=== PATIENT | female | born 1930 | race Caucasian/White ===

== ENCOUNTER → 2016-08-19 | Outpatient (CLI) | payer OTHER ==
[~2016-08-19] MED LIST: BIMA0.01 OPB; CEPH500C PO; CMD5 PO; CTP1 PO; FRS/40 PO; LISI-461 PO; METO100T14 PO; POTA10CA28 PO; SIMV20TA2 PO; SULF800T23 PO; WARF5TAB7 PO
[2016-08-19 12:40] LABS: ESTIMATED AVERAGE GLUCOSE 134 mg/dl; HA1C FLAG Normal (Normal)
[2016-08-19 13:09] LABS: ALT/SGPT 23 U/L (12-78); AST/SGOT 22 U/L (15-37); BLOOD UREA NITROGEN 19 mg/dl (7-18); BUN/CREATININE RATIO 23.4 (10-20); CARBON DIOXIDE 30 mmol/L (21-32); CHLORIDE 106 mmol/L (98-107); GLUCOSE 97 mg/dl (70-99); POTASSIUM 3.7 mmol/L (3.5-5.1); SODIUM 142 mmol/L (136-145)
[2016-08-19 13:15] LABS: CALCIUM 9.6 mg/dl (8.5-10.1)
[2016-08-19 13:18] LABS: ALB/GLOB RATIO 0.8 (0.9-2); ALKALINE PHOSPHATASE 118 U/L (45-117)
== END | disposition home or self-care (01) ==
LOC: C.LABBFT 08:54
PROVIDERS: ATTEND Internal Medicine
DX: Z00.00 Encounter for general adult medical examination without abnormal findings (principal); I10 Essential (primary) hypertension; E78.00 Pure hypercholesterolemia, unspecified; R73.01 Impaired fasting glucose; I48.1 Persistent atrial fibrillation; R60.9 Edema, unspecified

== ENCOUNTER → 2017-03-16 | Outpatient (CLI) | payer OTHER ==
[~2017-03-16] MED LIST changes: -CEPH500C PO; -SULF800T23 PO
--- NOTE | 2017-03-16 15:20 | MAMMOGRAPHY REPORT ---
BILATERAL DIGITAL SCREENING MAMMOGRAM TOMOSYNTHESIS WITH CAD: 03/16/2017 CLINICAL HISTORY: Routine screening. TECHNIQUE: Breast tomosynthesis in addition to standard 2D mammography was performed. Current study was also evaluated with a Computer Aided Detection (CAD) system. COMPARISON: Comparison is made to exams dated: 03/15/2016 mammogram, 03/14/2015 mammogram, 03/05/2014 mammogram, 01/29/2013 mammogram, 01/28/2012 mammogram, and 01/26/2011 mammogram - [facility]. BREAST COMPOSITION: There are scattered areas of fibroglandular density in both breasts. FINDINGS: No suspicious masses, calcifications, or areas of architectural distortion are noted in ei ther breast. There has been no significant interval change compared to prior exams. Scattered bilater al benign-appearing calcifications are not significantly changed. A biopsy marker clip is again note d within the left upper outer quadrant. IMPRESSION: ACR BI-RADS CATEGORY 2: BENIGN There is no mammographic evidence of malignancy. A 1 year screening mammogram is recommended. The pa tient will receive written notification of the results. Approximately 10% of breast cancers are not detected with mammography. A negative mammographic report should not delay biopsy if a clinically suggestive mass is present. Lauren Robledo M.D. ah/:03/16/2017 12:36:25 Aerodynamics Professor: Henna STORM(Lilly)(M), [facility] letter sent: Normal 1/2 BI-RADS Code: ACR BI-RADS Category 2: Benign
== END | disposition home or self-care (01) ==
LOC: C.MAMM 09:38
PROVIDERS: ATTEND Internal Medicine
DX: Z12.31 Encounter for screening mammogram for malignant neoplasm of breast (principal)

== ENCOUNTER 2017-08-21 13:37 | Inpatient (IN) | payer OTHER ==
[~2017-08-21] VITALS: Ht 160 cm; Wt 104.0 kg
--- NOTE | 2017-08-21 14:10 | EMERGENCY ROOM VISIT NOTE ---
History Report prepared by Carito: Yesika Spencer Under the Supervision of: Dr. Santiago Mccurdy M.D. First contact with patient: 13:48 Chief Complaint: FALL Stated Complaint: FALL History of Present Illness The patient is an 87 year old white female with a past medical history of HTN, HLD, on coumadin for Afib who presents to the ED with a cc of a fall beginning at 1330 today. Positive left hip pain, mid back pain and numbness. Negative abdominal pain, neck pain, chest pain, LOC. She reports she was getting in the passenger side of a car when she fell on her left side onto the asphalt. She states she could not walk after she fell. Source of History: patient Onset: 1330 today Position: other (Left Hip) Quality: other (fall) Timing: other (sudden) Associated Symptoms: + back pain (mid), + numbness (left hip), No LOC, No neck pain, No chest pain, No abdominal pain Review of Systems See HPI for pertinent positives and negatives. A total of ten systems were reviewed and were otherwise negative. Past Medical & Surgical Medical Problems: (1) History of - hysterectomy (2) HTN (hypertension) (3) Hyperlipidemia (4) left hip FX and accelerated HTN (5) Replacement of aortic valve Family History FH: cancer FH: heart disease FH: kidney disease FHx: diabetes mellitus High blood pressure Social History Smoking Status: Never Smoker Smokeless Tobacco Use: No Alcohol Use: none Drug Use: none Marital Status: Housing Status: lives alone Occupation Status: retired Current/Historical Medications Scheduled Bimatoprost (Lumigan), 1 DROPS OPB HS Lisinopril (Zestril), 10 MG PO DAILY Metoprolol Tartrate (Lopressor) (Lopressor), 150 MG PO BID Simvastatin (Zocor), 20 MG PO QPM Warfarin Sod (Coumadin *), 5 MG PO 5XWK Warfarin Sod (Jantoven), 2.5 MG PO 2XWK Scheduled PRN Furosemide (Lasix), 40 MG PO DAILY PRN for edema Potassium Chloride (Micro-K Ext Rel), 10 MEQ PO DAILY PRN for when taking lasix Allergies Coded Allergies: No Known Allergies (Unverified , 08/21/17) Physical Exam Vital Signs Date Time Temp Pulse Resp B/P (MAP) Pulse Ox O2 Delivery O2 Flow Rate FiO2 08/21/17 17:25 79 20 160/97 98 08/21/17 15:24 90 17 186/106 95 Room Air 08/21/17 14:04 190/104 08/21/17 13:45 88 08/21/17 13:43 36.6 91 26 182/129 94 Room Air Physical Exam GENERAL: Awake, alert, well-appearing, NAD. Wearing glasses. HENT: Normocephalic, atraumatic. No head pain, no facial pain. No midline C spine TTP. EYES: Normal conjunctiva. Sclera non-icteric. NECK: Supple. No nuchal rigidity. FROM. RESPIRATORY: CTAB, no rhonchi, wheezing, crackles CARDIAC: RRR, no MRG ABDOMEN: Soft, NTND, BS+ BACK: No back pain. MSK: No RLE, no BUE. Mild Left hip pain. Does not appear short. NVI distally in the LLE. Overlying ecchymosis over the left hip. Mild pain with internal and external rotation. NEURO: GCS 15, CN 2-12 intact, moves all 4s on command SKIN: No rash or jaundice noted. Medical Decision & Procedures ER Provider Diagnostic Interpretation: Radiology results as stated below per my review and radiologist interpretation: L CHEST 1 VW FRONT-NOT PORTABLE CLINICAL HISTORY: LT HIP FX trauma COMPARISON STUDY: 12/09/2012 FINDINGS: Mild stable cardiomegaly. Prior median sternotomy. Diaphragms are smooth. Focal atelectasis left base laterally. Lungs otherwise are clear. IMPRESSION: Mild stable cardia megaly. Focal atelectasis left base laterally. The above report was generated using voice recognition software. It may contain grammatical, syntax or spelling errors. Electronically signed by: Stephen Woods M.D. 08/21/2017 3:20 PM L PELVIS/UNILATERAL HIP 2-3VIEWS CLINICAL HISTORY: s/p fall L hip, ground level on coumadin trauma. Pain. COMPARISON: None. DISCUSSION: Intertrochanteric fracture with potential involvement of the base of the left femoral neck. Slice appear migration left femoral shaft. Avulsion lesser trochanter. No evidence for acetabular protrusion. There is no evidence for soft tissue swelling. IMPRESSION: Intertrochanteric fracture left hip. The above report was generated using voice recognition software. It may contain grammatical, syntax or spelling errors. Electronically signed by: Stephen Woods M.D. 08/21/2017 3:17 PM Laboratory Results 08/21/17 14:20 Red Blood Count 4.44, Mean Corpuscular Volume 90.8, Mean Corpuscular Hemoglobin 28.8, Mean Corpuscular Hemoglobin Concent 31.8, Mean Platelet Volume 9.2, Neutrophils (%) (Auto) 84.0, Lymphocytes (%) (Auto) 6.2, Monocytes (%) (Auto) 6.7, Eosinophils (%) (Auto) 2.5, Basophils (%) (Auto) 0.3, Neutrophils # (Auto) 9.95, Lymphocytes # (Auto) 0.73, Monocytes # (Auto) 0.79, Eosinophils # (Auto) 0.29, Basophils # (Auto) 0.03 08/21/17 14:20 Test 08/21/17 14:20 08/21/17 16:12 White Blood Count 11.83 K/uL (4.8-10.8) Red Blood Count 4.44 M/uL (4.2-5.4) Hemoglobin 12.8 g/dL (12.0-16.0) Hematocrit 40.3 % (37-47) Mean Corpuscular Volume 90.8 fL (80-100) Mean Corpuscular Hemoglobin 28.8 pg (25-34) Mean Corpuscular Hemoglobin Concent 31.8 g/dl (32-36) Platelet Count 219 K/uL (130-400) Mean Platelet Volume 9.2 fL (7.4-10.4) Neutrophils (%) (Auto) 84.0 % Lymphocytes (%) (Auto) 6.2 % Monocytes (%) (Auto) 6.7 % Eosinophils (%) (Auto) 2.5 % Basophils (%) (Auto) 0.3 % Neutrophils # (Auto) 9.95 K/uL (1.4-6.5) Lymphocytes # (Auto) 0.73 K/uL (1.2-3.4) Monocytes # (Auto) 0.79 K/uL (0.11-0.59) Eosinophils # (Auto) 0.29 K/uL (0-0.5) Basophils # (Auto) 0.03 K/uL (0-0.2) RDW Standard Deviation 47.8 fL (36.4-46.3) RDW Coefficient of Variation 14.5 % (11.5-14.5) Immature Granulocyte % (Auto) 0.3 % Immature Granulocyte # (Auto) 0.04 K/uL (0.00-0.02) Prothrombin Time 42.2 SECONDS (9.0-12.0) Prothromb Time International Ratio 4.1 (0.9-1.1) Activated Partial Thromboplast Time 39.7 SECONDS (21.0-31.0) Partial Thromboplastin Ratio 1.5 Anion Gap 4.0 mmol/L (3-11) Est Creatinine Clear Calc Drug Dose 44.2 ml/min Estimated GFR () 55.9 Estimated GFR (Non- 48.3 BUN/Creatinine Ratio 11.6 (10-20) Calcium Level 9.1 mg/dl (8.5-10.1) Creatine Kinase MB 0.9 ng/ml (0.5-3.6) Troponin I < 0.015 ng/ml (0-0.045) Creatine Kinase MB Ratio (0-3.0) Laboratory results reviewed by me Medications Administered Medications (Trade) Dose Ordered Sig/Trista Route Start Time Stop Time Status Last Admin Dose Admin Acetaminophen (Tylenol Tab) 650 mg NOW STAT PO 08/21/17 14:11 08/21/17 14:16 DC 08/21/17 14:22 650 MG Tramadol HCl (Ultram Tab) 50 mg NOW STAT PO 08/21/17 14:11 08/21/17 14:16 DC 08/21/17 14:22 50 MG Phytonadione 5 mg/ Sodium Chloride 50.5 ml @ 101 mls/hr ONE ONCE IV 08/21/17 16:00 08/21/17 16:29 DC 08/21/17 16:56 101 MLS/HR ED Course 1402: The patient was evaluated in room C10. A complete history and physical exam was performed. 1525: The patient will be further evaluated by Dr. Herring [facility] Hospitalist. 1543: I discussed the patients case with Dr. Mario Olivo, Orthopedics. He would like her Coumadin reversed for likely operative treatment tomorrow. 1552: I discussed the patient's case with Dr. Mattson, [facility] Hospitalist. He agrees with Dr. Olivo's recommendation. Medical Decision The patient is an 87 year old white female with a past medical history of HTN, HLD, on coumadin for Afib who presents to the ED with a cc of a fall beginning at 1330 today. Nursing notes reviewed. Ancillary studies and prior records reviewed. Differential diagnosis: Etiologies such as fracture, dislocation, neurovascular compromise, compartment syndrome, soft tissue injury, as well as others were entertained. Patient was seen and evaluated the bedside. Patient reportedly had a mechanical fall she was trying to get into the passenger side of the vehicle approximately 30 hours prior to arrival. Patient did complain of some left- sided hip pain. Patient does take Coumadin. Patient denies hitting her head or neck. Patient denies any headache, numbness, tingling, or weakness. On exam the patient does have some mild left-sided hip pain. Patient is neurovascularly intact and and it is a closed injury. Patient does take Coumadin for A. fib. Patient did blood work completed along with plain films of the pelvis, left hip , and chest. Patient's blood work did show an elevated INR at 4.1. The patient 's plain films showed concern for a left intertrochanteric fracture. The on-call orthopedic surgeon was paged. He would like her INR reversed so that there can be operative fixation tomorrow. No other concerns at this time. I did reassess the patient his pain was well controlled. The patient is no one did not want anything else for pain. Patient was informed of the findings and the need to stay in the hospital. Patient did state that the last time she took for Coumadin was last night. Patient was told this would be held and she may receive medication to reverse it. I did discuss the patient's case with the on-call hospitalist who agreed to further evaluate and treat patient. Medication Reconcilliation Current Medication List: was personally reviewed by me Blood Pressure Screening Patient's blood pressure: Elevated blood pressure Blood pressure disposition: Referred to PCP Consults Additional Consults: Time Called: 1538 Consulted Physician: Dr. Mario Olivo, Orthopedics Returned Call: [phone] Additional Comments: I discussed the patients case with Dr. Mario Levine, Orthopedics. He would like her Coumadin reversed for likely operative treatment tomorrow. Time Called: 1543 Consulted Physician: Dr. Mattson, [facility] Hospitalist Returned Call: [phone] Additional Comments: The patient will be further evaluated by Dr. Mattson, [facility] Hospitalist. Impression Primary Impression: Intertrochanteric fracture of left hip Additional Impressions: Fall Supratherapeutic INR Scribe Attestation The scribe's documentation has been prepared under my direction and personally reviewed by me in its entirety. I confirm that the note above accurately reflects all work, treatment, procedures, and medical decision making performed by me. Departure Information Dispostion Being Evaluated By Hospitalist (Dr. Herring [facility] Hospitalist ) Referrals Deb Rizzo M.D. (PCP) Patient Instructions My [facility] Problem Qualifiers Primary Impression: Intertrochanteric fracture of left hip Encounter type: initial encounter Fracture type: closed Fracture alignment : displaced Qualified Codes: S72.142A - Displaced intertrochanteric fracture of left femur, initial encounter for closed fracture Additional Impressions: Fall Encounter type: initial encounter Qualified Codes: W19.XXXA - Unspecified fall, initial encounter
[2017-08-21] MEDS ORDERED: TRAMADOL HCL 50 MG TAB PO STA (14:11)
[2017-08-21] MEDS ORDERED: ACETAMINOPHEN 325 MG TAB PO STA (14:11)
[2017-08-21 14:39] LABS: BASO % 0.3 %; BASO ABS # 0.03 K/uL (0-0.2); EOS % 2.5 %; EOS ABS # 0.29 K/uL (0-0.5); HEMATOCRIT 40.3 % (37-47); HEMOGLOBIN 12.8 g/dL (12.0-16.0); IG# 0.04 K/uL (0.00-0.02); LYMPH % 6.2 %; LYMPH ABS # 0.73 K/uL (1.2-3.4); MEAN CELL VOLUME 90.8 fL (80-100); MEAN CORPUSCULAR HEMOGLOBIN 28.8 pg (25-34); MEAN CORPUSCULAR HGB CONC 31.8 g/dl (32-36); MEAN PLATELET VOLUME 9.2 fL (7.4-10.4); MONO % 6.7 %; MONO ABS # 0.79 K/uL (0.11-0.59); NEUT ABS # 9.95 K/uL (1.4-6.5); PLATELET COUNT 219 K/uL (130-400); RED CELL DISTRIBUTION WIDTH CV 14.5 % (11.5-14.5); RED CELL DISTRIBUTION WIDTH SD 47.8 fL (36.4-46.3); WHITE BLOOD COUNT 11.83 K/uL (4.8-10.8)
[2017-08-21 14:51] LABS: PTT PATIENT 39.7 SECONDS (21.0-31.0)
[2017-08-21 14:57] LABS: CALCIUM 9.1 mg/dl (8.5-10.1); CREATININE 1.04 mg/dl (0.60-1.20); POTASSIUM 3.7 mmol/L (3.5-5.1)
[2017-08-21 15:12] LABS: INR 4.1 (0.9-1.1)
--- NOTE | 2017-08-21 15:18 | DIAGNOSTIC IMAGING REPORT ---
L PELVIS/UNILATERAL HIP 2-3VIEWS CLINICAL HISTORY: s/p fall L hip, ground level on coumadin trauma. Pain. COMPARISON: None. DISCUSSION: Intertrochanteric fracture with potential involvement of the base of the left femoral neck. Slice appear migration left femoral shaft. Avulsion lesser trochanter. No evidence for acetabular protrusion. There is no evidence for soft tissue swelling. IMPRESSION: Intertrochanteric fracture left hip. The above report was generated using voice recognition software. It may contain grammatical, syntax or spelling errors. Electronically signed by: Stephen Woods M.D. 08/21/2017 3:17 PM Dictated Date/Time: 08/21/2017 3:16 PM
--- NOTE | 2017-08-21 15:22 | DIAGNOSTIC IMAGING REPORT ---
L CHEST 1 VW FRONT-NOT PORTABLE CLINICAL HISTORY: LT HIP FX trauma COMPARISON STUDY: 12/09/2012 FINDINGS: Mild stable cardiomegaly. Prior median sternotomy. Diaphragms are smooth. Focal atelectasis left base laterally. Lungs otherwise are clear. IMPRESSION: Mild stable cardia megaly. Focal atelectasis left base laterally. The above report was generated using voice recognition software. It may contain grammatical, syntax or spelling errors. Electronically signed by: Stephen Woods M.D. 08/21/2017 3:20 PM Dictated Date/Time: 08/21/2017 3:20 PM
[2017-08-21] MEDS ORDERED: PHYTONADIONE INJ 5 MG in SODIUM CHLORIDE 0.9% 50ML 50 ML IV ONE (16:00)
[2017-08-21] MEDS ORDERED: ONDANSETRON INJ 2 MG/ML 2 ML VIAL IV PRN (16:15)
[2017-08-21] MEDS ORDERED: MAGNESIUM HYDROXIDE SUSP 30 ML UDC PO PRN (16:15)
[2017-08-21] MEDS ORDERED: NITROGLYCERIN 0.4 MG SL PER TAB CHARGE SL PRN (16:15)
[2017-08-21] MEDS ORDERED: POLYETHYLENE (MIRALAX) 17 GM PACK PO PRN (16:15)
[2017-08-21] MEDS ORDERED: ZOLPIDEM TARTRATE 5 MG TAB PO PRN (16:15)
[2017-08-21] MEDS ORDERED: ALUMINUM/MAGNESIUM/SIMETH (MAALOX MAX) 30 ML UDC PO PRN (16:15)
[2017-08-21] MEDS ORDERED: HydrALAZINE HCL 20 MG/ML VIAL IV. STA (16:32)
[2017-08-21 16:50] LABS: CKMB 0.9 ng/ml (0.5-3.6)
--- NOTE | 2017-08-21 17:01 | History and Physical ---
History & Physical Date of Service Aug 21, 2017. History & Physical left hip FX and accelerated HTN, 144204
[2017-08-21 17:30] VITALS: BMI 41.0
--- NOTE | 2017-08-21 17:32 | HISTORY & PHYSICAL EXAMINATION ---
DATE OF ADMISSION: 08/21/2017 This is a level 3 inpatient admission, 35 minutes. CHIEF COMPLAINT: Fall and hip fracture. HISTORY OF PRESENT ILLNESS: The patient is an 87-year-old white female with a significant past medical history of CAD, s/p bioprosthetic aortic valve replacement in 2009 and has atrial fibrillation on Coumadin, coming into the hospital Emergency Department because of the above chief complaint. The patient reported she fell on 13:30 today associated with hip pain. Mild back pain and numbness. There was not any dizziness or chest pain, palpitations before the fall, she was out of car and wanted to hold the opening of car doors and then fell. She was getting the passenger side of the car when she fell on the left side on to asphalt. She was not able to walk since the fall. In the Emergency Room, the patient was found to have an intertrochanteric fractures in the left hip. When I interviewed with her, she was awake, alert and orientated, pleasant, conversational, follows all commands. Confirmed me the above information, Denied fever or chills, denied cough, sputum. Denies shortness of breath, denied chest pain, palpitation, there was positive 2+, lower extremity swelling. Denied facial droop, slurry speeches or local weakness. Denied dysuria, urgency, or frequencies, denied fever and chills, denies skin rashes. PAST MEDICAL HISTORY: Like I mentioned in the above which include CAD, bioprosthetic aortic valve replacement in 2009, atrial fibrillation on Coumadin, hypertension, dyslipidemia, anxiety, history of CVA. PAST SURGICAL HISTORY: Include bioprosthetic aortic valve replacement, appendectomy, tubal ligation, and hysterectomy. FAMILY HISTORY: Include hypertension, heart disease. SOCIAL HISTORY: Never smoked. Denied alcohol abuse disorder, denied illicit drug abuse. The patient lives alone. ALLERGIES: No known drug allergies. MEDICATIONS: Currently taking at home which include Lumigan eyedrops 0.01% one drop OPB, Lasix 40 mg p.o. p.r.n. for edema, lisinopril 10 mg p.o. daily, metoprolol 150 mg p.o. b.i.d., potassium 10 mEq p.o. daily p.r.n., Zocor 20 mg p.o. q.p.m., warfarin 5 mg 5 times per week and 2.5 mg 2 times per week. PHYSICAL EXAMINATION: VITAL SIGNS: Temperature is 36.6, pulse 90, respiratory rate 26, blood pressure 182/129 to begin with and currently is 186/106. Pulse ox was 96% in room air. GENERAL: The patient is a white female, much younger than her age. She is awake, alert, well appearing, no acute distress. HEAD: Normocephalic. EYES: Pupils equal, round, responds to light. EARS: Ear was normal. NOSE: Normal. NECK: Supple. No midline cervical spine tender to palpation. LUNGS: Clear to auscultation. No wheezing, rhonchi or crackles. HEART: Irregularly irregular. No murmur, gallop or rub. ABDOMEN: Soft, nontender. Bowel sound was positive. EXTREMITIES: Lower back has no pain. No right lower extremity abnormalities. Left lower extremity is shorter in external rotation. NEUROLOGIC: Cranial nerves II-XII was intact. There were no focal deficits. SKIN: Has no rashes, no jaundice. Chest x-ray was done, mild stable cardiomegaly. There was no congestion, no pleural effusion or pulmonary edema. Left pelvic x-ray studies shows intertrochanteric fracture of the left hip. LABORATORY STUDIES: WBC 11, hemoglobin 12, platelets 219. Sodium 139, potassium 3.7, BUN 12, creatinine 1.04. Blood glucose 117. In the ER, the patient got Tylenol and Tramadol. EKG not done yet in the ER. ASSESSMENT AND PLAN: An 87-year-old white female with the conditions below; 1. Mechanical fall resulting in intertrochanteric left hip fracture 2. History of atrial fibrillation, on Coumadin. 3. Hypertherapeutic Coumadin. INR at 4.1. 4. History of bioprosthetic aortic valve replacement. 5. History of coronary artery disease. 6. Hypertension, which is accelerated hypertension currently. 7. Dyslipidemia. PLAN: Because the patient has a history of aortic valve bioprosthetic replacement, currently has accelerated hypertension, history of coronary artery disease, and AFib, I will admit her to the tele, will consult Dr. Levine for the left hip fracture, discussed with Dr. eLvine and will repeat INR at 8:00 p.m. tonight. The patient got 5 mg IV vitamin K in the Emergency Room. If the INR is still high, we will give additional 5 mg vitamin K per Dr. Levine. I had a consented blood transfusion or FFP transfusion; if the patient's INR level more than 2 tomorrow morning, the patient should get 2 units of FFP transfusion. The patient has accelerated hypertension, I will order hydralazine 1 dose now and as needed. We will check cardiac enzyme troponin x1 set. Check EKG and tomorrow morning labs, CBC, BMP, PT/INR were ordered. For hypertension, dyslipidemia, will continue home medication. DVT prophylaxis currently is not indicated because the patient is planning to do surgeries and current INR is more than 4.1. The patient is do not resuscitation. The patient is awake, alert, and orientated and talked to her about the medical conditions and care plan. She understands and agreed and discussed with her about the moderate to high risk of perioperative cardiopulmonary complications, the risk and benefit, she fully understand and willing to take on the risk by herself. Two sisters at the bedside and they all understand and agree as well. BRYAN
[2017-08-21 17:51] VITALS: BP 147/100; PULSE 96; TEMP 37; O2SAT 97
[2017-08-21] MEDS: SODIUM CHLORIDE 0.9% 1000ML 1,000 ML IV SCH (18:08)
[2017-08-21 18:48] VITALS: BP 152/98
[2017-08-21] MEDS ORDERED: PHYTONADIONE INJ 5 MG in SODIUM CHLORIDE 0.9% 50ML 50 ML IV PRN (20:00)
[2017-08-21 20:17] VITALS: BP 159/106; PULSE 91; TEMP 36.6; O2SAT 96
[2017-08-21] MEDS: BIMATOPROST 0.01% OP SOLN 2.5 ML BTL OPB SCH (20:22)
[2017-08-21] MEDS: SIMVASTATIN 20 MG TAB PO SCH (20:22)
[2017-08-21] MEDS: DOCUSATE SODIUM/SENNA 50/8.6MG TAB PO SCH ×3 (20:23→21:01)
[2017-08-21] MEDS: METOPROLOL TARTRATE 100 MG TAB PO SCH (20:23)
[2017-08-21 20:33] LABS: INR 2.5 (0.9-1.1)
--- NOTE | 2017-08-21 20:37 | ORTHOPEDIC CONSULTATION ---
DATE OF CONSULTATION: 08/21/2017 Melany is seen in consultation for injury to her left hip. She fell earlier today. She had pain and could not walk. She was brought to the Emergency Room where she was found to have a left intertrochanteric hip fracture. She has a past medical history significant for coronary artery disease, aortic valve replacement, atrial fibrillation, hypertension, CVA, anxiety, elevated cholesterol. Her orthopedic doctor is Dr. Webb. I spoke with Dr. Mattson about her care. Reversal of her Coumadin with vitamin K has been started. This will be rechecked again at 8 o'clock tonight, and if elevated, another dose of vitamin K will be given, and a PT/INR will be checked in the morning. She has been made n.p.o. and added to the OR schedule. She has pain in her right hip with any movement. The leg is shortened and externally rotated. The left lower extremity is otherwise nontender. I do not palpate a posterior tibial pulse, but she has a 1+ dorsalis pedis pulse with normal sensation in her ankle and foot. She can flex and extend her ankle and toes with normal strength. She denies other injury. She has no history of bleeding, blood clots, or infections. Her elevated INR as well as SCDs will serve for DVT prophylaxis. Preop antibiotics are ordered. Her x-rays show a left hip comminuted intertrochanteric fracture. The proposed plan would be a trochanteric femoral nail. I will communicate with Dr. Webb.
[2017-08-21 21:02] VITALS: BP 166/96; PULSE 86; TEMP 36.7; O2SAT 96
[2017-08-21 21:32] VITALS: BP 165/89; PULSE 90; TEMP 36.6; O2SAT 96
[2017-08-21] MEDS: HydrALAZINE HCL 20 MG/ML VIAL IV. PRN (21:43)
[2017-08-21] MEDS: ACETAMINOPHEN 325 MG TAB PO PRN (22:00)
[2017-08-21 23:30] VITALS: BP 116/62; PULSE 98; TEMP 36.6; O2SAT 97
[2017-08-22] VITALS (7 sets, daily range): BP systolic 98–185; BP diastolic 65–115; PULSE 93–117; TEMP 36.6–37.1; O2SAT 93–97; Ht 160 cm; Wt 104.0 kg
[2017-08-22] MEDS: HYDROCODONE/ACETAMIN 5/325MG TAB PO PRN ×3 (01:28→22:34)
[2017-08-22 05:50] LABS: BASO % 0.1 %; BASO ABS # 0.01 K/uL (0-0.2); HEMATOCRIT 31.4 % (37-47); IG# 0.04 K/uL (0.00-0.02); LYMPH ABS # 1.01 K/uL (1.2-3.4); MEAN CORPUSCULAR HEMOGLOBIN 28.7 pg (25-34); MEAN CORPUSCULAR HGB CONC 31.8 g/dl (32-36); MEAN PLATELET VOLUME 9.2 fL (7.4-10.4); MONO % 8.3 %; MONO ABS # 1.04 K/uL (0.11-0.59); NEUT % 83.3 %; NEUT ABS # 10.47 K/uL (1.4-6.5); PLATELET COUNT 190 K/uL (130-400); RED CELL DISTRIBUTION WIDTH CV 14.5 % (11.5-14.5); RED CELL DISTRIBUTION WIDTH SD 47.4 fL (36.4-46.3); WHITE BLOOD COUNT 12.57 K/uL (4.8-10.8)
[2017-08-22 05:55] LABS: INR 1.5 (0.9-1.1)
[2017-08-22] MEDS ORDERED: CEFAZOLIN 2000MG IV PUSH 15 ML IV SCH (06:00)
[2017-08-22] MEDS ORDERED: CEFAZOLIN IV 2,000 MG in DEXTROSE 5% 50ML 50 ML IV SCH (06:00)
[2017-08-22 06:30] LABS: CALCIUM 8.4 mg/dl (8.5-10.1); CREATININE 1.1 mg/dl (0.60-1.20); POTASSIUM 3.9 mmol/L (3.5-5.1)
[2017-08-22 06:32] LABS: PHOSPHORUS 3.2 mg/dl (2.5-4.9)
[2017-08-22] MEDS: METOPROLOL TARTRATE 100 MG TAB PO SCH ×2 (07:42→20:58)
--- NOTE | 2017-08-22 07:44 | PROGRESS NOTE ---
DATE: 08/22/2017 SUBJECTIVE: An 87-year-old female admitted with a left intertrochanteric hip fracture from a fall. She is relatively comfortable this morning. No new complaints. Isolated hip pain now only when she moves it. No chest pain or shortness of breath. OBJECTIVE: VITAL SIGNS: Temperature is 37.1. Vital signs stable. PHYSICAL EXAMINATION: GENERAL: Today shows a pleasant elderly female. She is lying in bed, looks pretty comfortable. EXTREMITIES: Examination of the left leg reveals a large soft tissue envelope. Her leg is shortened and externally rotated. She can dorsiflex and plantarflex her foot appropriately. LABORATORY DATA: Hemoglobin 10.0, hematocrit 31.4. INR 1.5. Electrolytes are stable. ASSESSMENT: An 87-year-old white female with multiple comorbidities including coronary artery disease, history of atrial fibrillation, on Coumadin, aortic valve replacement, hypertension, elevated cholesterol with a left displaced intertrochanteric hip fracture. Her INR has been reversed adequately. This is certainly something that is best treated surgically. PLAN: We talked about treatment options. We are going to proceed with IM nailing of the left intertrochanteric fracture later on this afternoon. The risks and benefits of the procedure were explained to the patient and include but not limited to DVT, PE, , infection, nonunion, malunion, persistent pain, incomplete relief of symptoms, need for further surgery in the future, etc. The patient's understands and desires to proceed. Informed consent was obtained. We will keep her n.p.o. for now. DVT prophylaxis including thigh-high TEDs, SCDs, and will start Coumadin postoperatively. BRYAN
[2017-08-22] MEDS: LISINOPRIL 10 MG TAB PO SCH (07:49)
[2017-08-22] MEDS ORDERED: NURSING VERBAL MED ORDER ONE (08:00)
--- NOTE | 2017-08-22 08:17 | Clinical Documentation Query ---
CLINICAL DOCUMENTATION QUERY QUERY 1 OF 4 87 yo female admitted with left hip fracture. Patient fell from a standing position and has a vitamin D level of 16.5. In your clinical opinion is this patient being managed for: ( x ) possible Pathological fracture, left femur ( ) Not Agree ( ) Other explanation of clinical findings (Please Explain) ( ) Unable to determine (Please Define) ( ) Need to Discuss The medical record reflects the following clinical findings, treatment, and risk factors. Clinical Indicators: As above Treatment: Vitamin D level, surgical intervention Risk Factors: Age, female, s/p fall QUERY 2 OF 4 Patient takes Lasix 40mg PO daily PRN at home for edema. CXR shows stable cardiomegaly. Echo from 2011 shows hyperdynamic left ventricular systolic function, severe left ventricular hypertrophy and EF = 70%. ProBNP = 2403 In your clinical opinion is this patient being managed for: ( x) possible Chronic diastolic CHF compensated ( ) Chronic systolic CHF ( ) Not Agree ( ) Other explanation of clinical findings (Please Explain) ( ) Unable to determine (Please Define) ( ) Need to Discuss The medical record reflects the following clinical findings, treatment, and risk factors. Clinical Indicators: As above Treatment: CXR, ProBNP, daily weights Risk Factors: Age, HTN, Afib, CKD QUERY 3 OF 4 Patient's BMI = 40.9 In your clinical opinion is this patient being managed for: (x ) Obesity ( ) Not Agree ( ) Other explanation of clinical findings (Please Explain) ( ) Unable to determine (Please Define) ( ) Need to Discuss The medical record reflects the following clinical findings, treatment, and risk factors. Clinical Indicators: As above Treatment: Portioned diet, daily weight Risk Factors: Age, left hip fracture QUERY 4 OF 4 Patient's GFR range from 03/17/17 to present are 44.4 to 48.3. In your clinical opinion is this patient being managed for: (x ) Chronic kidney disease, stage 3 ( ) Not Agree ( ) Other explanation of clinical findings (Please Explain) ( ) Unable to determine (Please Define) ( ) Need to Discuss The medical record reflects the following clinical findings, treatment, and risk factors. Clinical Indicators: As above Treatment: PRP Risk Factors: Age, Afib, HTN, possible chronic CHF Please clarify and document your clinical opinion in the progress notes and discharge summary. Terms such as "probable", "suspected", "likely", "questionable", "possible", or "still to be ruled out" are acceptable. IF IN AGREEMENT, YOU MUST DOCUMENT ABOVE DIAGNOSTIC STATEMENT IN DAILY PROGRESS NOTES AND DISCHARGE SUMMARY. This document is not part of the patient's record. Thank You, Leona Onofre RN [phone]
--- NOTE | 2017-08-22 10:11 | Hospitalist Progress Note ---
Hospitalist Progress Note Date of Service Aug 22, 2017. Subjective Pt evaluation today including: conversation w/ patient, physical exam, chart review, lab review, review of studies, review of inpatient medication list Pain: None PO Intake: NPO Voiding: no voiding problems Patient reports feeling well this morning. She states her left hip was very painful yesterday and last night but is feeling much better now. She currently denies any pain in the left hip and has not taken any pain medication since very early this morning. She denies any numbness or tingling. She is currently NPO for ortho surgery later today. The patient denies fevers, chills , sweats, chest pain, palpitations, claudication, cough, wheezing, shortness of breath, nausea, vomiting, abdominal pain, dysuria, hematuria, urinary retention , paralysis, weakness, numbness and tingling. Additional Comments: See HPI for pertinent positives and negatives. All other systems reviewed and negative. Objective Vital Signs Date Time Temp Pulse Resp B/P (MAP) Pulse Ox O2 Delivery O2 Flow Rate FiO2 08/22/17 07:59 36.7 93 20 121/86 (98) 95 08/22/17 04:00 Room Air 08/22/17 03:42 37.1 106 17 114/67 (83) 96 Room Air 08/21/17 23:59 Room Air 08/21/17 23:30 36.6 98 16 116/62 (80) 97 Room Air 08/21/17 21:32 36.6 90 16 165/89 (114) 96 Room Air 08/21/17 21:02 36.7 86 16 166/96 (119) 96 Room Air 08/21/17 20:17 36.6 91 16 159/106 (123) 96 Room Air 08/21/17 20:00 Room Air 08/21/17 18:48 152/98 (116) 08/21/17 17:51 37.0 96 20 147/100 (116) 97 Room Air 08/21/17 17:30 Room Air 08/21/17 17:25 79 20 160/97 98 08/21/17 15:24 90 17 186/106 95 Room Air 08/21/17 14:04 190/104 08/21/17 13:45 88 08/21/17 13:43 36.6 91 26 182/129 94 Room Air Physical Exam Notes: General appearance: +Morbidly obese. Well-developed, well-nourished, no apparent distress Head: Normocephalic, atraumatic Eyes: Normal inspection, PERRL, EOMI ENT: Normal ENT inspection, hearing grossly normal, pharynx normal Neck: Supple, no JVD, trachea midline Respiratory/Chest: Lungs clear to auscultation, normal breath sounds, no respiratory distress Cardiovascular: +Irregularly irregular, rate controlled. Systolic murmur. No gallop Abdomen/GI: Normal bowel sounds, non-tender, soft Extremities/Musculoskeletal: +No ecchymoses. Normal inspection, no calf tenderness, no pedal edema Neurological/Psych: Alert, normal mood/affect, oriented x 3 Skin: Normal color, warm/dry, no rash Laboratory Results Last 24 Hours Test 08/21/17 14:20 08/21/17 16:12 08/21/17 20:00 08/22/17 05:38 White Blood Count 11.83 K/uL 12.57 K/uL Red Blood Count 4.44 M/uL 3.49 M/uL Hemoglobin 12.8 g/dL 10.0 g/dL Hematocrit 40.3 % 31.4 % Mean Corpuscular Volume 90.8 fL 90.0 fL Mean Corpuscular Hemoglobin 28.8 pg 28.7 pg Mean Corpuscular Hemoglobin Concent 31.8 g/dl 31.8 g/dl Platelet Count 219 K/uL 190 K/uL Mean Platelet Volume 9.2 fL 9.2 fL Neutrophils (%) (Auto) 84.0 % 83.3 % Lymphocytes (%) (Auto) 6.2 % 8.0 % Monocytes (%) (Auto) 6.7 % 8.3 % Eosinophils (%) (Auto) 2.5 % 0.0 % Basophils (%) (Auto) 0.3 % 0.1 % Neutrophils # (Auto) 9.95 K/uL 10.47 K/uL Lymphocytes # (Auto) 0.73 K/uL 1.01 K/uL Monocytes # (Auto) 0.79 K/uL 1.04 K/uL Eosinophils # (Auto) 0.29 K/uL 0.00 K/uL Basophils # (Auto) 0.03 K/uL 0.01 K/uL RDW Standard Deviation 47.8 fL 47.4 fL RDW Coefficient of Variation 14.5 % 14.5 % Immature Granulocyte % (Auto) 0.3 % 0.3 % Immature Granulocyte # (Auto) 0.04 K/uL 0.04 K/uL Prothrombin Time 42.2 SECONDS 26.1 SECONDS 15.2 SECONDS Prothromb Time International Ratio 4.1 2.5 1.5 Activated Partial Thromboplast Time 39.7 SECONDS Partial Thromboplastin Ratio 1.5 Sodium Level 139 mmol/L 138 mmol/L Potassium Level 3.7 mmol/L 3.9 mmol/L Chloride Level 102 mmol/L 104 mmol/L Carbon Dioxide Level 33 mmol/L 31 mmol/L Anion Gap 4.0 mmol/L 3.0 mmol/L Blood Urea Nitrogen 12 mg/dl 19 mg/dl Creatinine 1.04 mg/dl 1.10 mg/dl Est Creatinine Clear Calc Drug Dose 44.2 ml/min 41.7 ml/min Estimated GFR () 55.9 52.3 Estimated GFR (Non- 48.3 45.1 BUN/Creatinine Ratio 11.6 17.0 Random Glucose 117 mg/dl 125 mg/dl Calcium Level 9.1 mg/dl 8.4 mg/dl Creatine Kinase MB 0.9 ng/ml Troponin I < 0.015 ng/ml Creatine Kinase MB Ratio Pro-B-Type Natriuretic Peptide 2403 pg/ml 25-Hydroxy Vitamin D Total 16.5 ng/ml Phosphorus Level 3.2 mg/dl Magnesium Level 2.2 mg/dl Assessment and Plan 87 y/o female with a history of CAD, bioprosthetic aortic valve, a-fib, HTN, HLD , and glaucoma who presents with a left intertrochanteric hip fracture following a mechanical fall. L hip fracture--stable -Admit to telemetry due to a-fib. Pt remained in a-fib overnight with HR mostly 80s-90s, although HR up to 100s-140s overnight, likely while in pain -Ortho surgery consulted, appreciate recs: INR now acceptable, will proceed with surgery today. -NPO for procedure this afternoon -Leukocytosis. WBC 12.57 on 08/22, up from 11.83 -Hgb stable, down to 10.0 on 08/22 from 12.8 -Cardiac enzymes negative x 1 set -Vitamin D low at 16.5 CAD, HTN, HLD--stable -Continue Lopressor 150 mg PO BID, Zocor 20 mg PO qd -Lisinopril on hold until after surgery when renal function is checked/stable Permanent a-fib--stable -INR had been supratherapeutic on admission at 4.1 -Given vitamin K 5 mg IV x 2 doses -INR 1.5 today, can proceed with surgery -Resume warfarin postoperatively, continue to monitor Glaucoma -Continue Lumigan drops at bedtime DVT prophylaxis -Hold chemical ppx due to surgery today -DE malagon and SCDs Code Status -Level V, DO NOT RESUSCITATE Dispo -Pt lives w/sister -Will need PT/OT after surgery, likely rehab. Pt requests [facility]
--- NOTE | 2017-08-22 11:46 | ECHOCARDIOGRAM REPORT ---
*NOTICE TO RECEIVING LIBERTARIAN AGENCY This information is strictly Confidential and protected under [place] law. [place] law prohibits you from making any further disclosure of this information unless further disclosure is expressly permitted by the written consent of the person to whom it pertains or is authorized by law. A general authorization for the release of medical or other information is not sufficient for this purpose. Hospital accepts no responsibility if the information is made available to any other person, INCLUDING THE PATIENT. Interpretation Summary * Name: СВЕТЛАНА BURGOS Study Date: 08/22/2017 06:30 AM BP: 114/67 mmHg * Patient Location: [facility] HR: 86 * : 1930 (M/d/yyyy) Gender: Female Height: 63 in * Age: 87 yrs Ethnicity: [place] Weight: 231 lb * Ordering Physician: Nick Mattson * Referring Physician: Self, Referred * Performed By: Elke Osorio RDCS * * Reason For Study: AFIB * BSA: 2.1 m2 * -- Conclusions -- * The left ventricular cavity is small. * There is moderate concentric left ventricular hypertrophy. * The left ventricle is hyperdynamic. * The right ventricular systolic function is reduced as assessed by tricuspid annular plane systolic excursion (TAPSE) (TAPSE <1.6 cm). * The left atrium is mildly dilated. * Mild valvular aortic stenosis. * There is mild mitral regurgitation. Procedure Details * A contrast injection of Definity was performed to improve assessment of LV function. * Contrast was injected into an intravenous site in the right arm. * One vial of Definity ultrasound contrast was diluted in normal saline to a total volume of 10 ml. A total of '1' ml of solution was administered during imaging. * Lot # [id number] of Definity utilized for procedure. * Expiration date AUG 18. * The attending nurse who injected the contrast agent was POLO Urias RN. Left Ventricle * The left ventricular cavity is small. * There is moderate concentric left ventricular hypertrophy. * Ejection Fraction = >70 %. * The left ventricle is hyperdynamic. * The left ventricular wall motion is normal. Right Ventricle * The right ventricle is normal size. * The right ventricular systolic function is reduced as assessed by tricuspid annular plane systolic excursion (TAPSE) (TAPSE <1.6 cm). Atria * The left atrium is mildly dilated. * Right atrial size is normal. Mitral Valve * The mitral valve is grossly normal. * There is mild mitral regurgitation. Tricuspid Valve * The tricuspid valve is not well visualized, but is grossly normal. * There is mild tricuspid regurgitation. Aortic Valve * The aortic valve is not well visualized. * Mild valvular aortic stenosis. * There is no significant aortic regurgitation. Pulmonic Valve * The pulmonic valve is not well visualized. Pericardium/Pleural * There is no pericardial effusion. Great Vessels * Normal inferior vena cava diameter and respiratory variation suggests normal central venous pressure. MMode 2D Measurements and Calculations IVSd 1.4 cm IVSs 1.6 cm LVIDd 3.5 cm LVIDs 2.1 cm LVPWd 1.8 cm LVPWs 2.0 cm IVS/LVPW 0.73 FS 41.9 % EDV(Teich) 52.6 ml ESV(Teich) 13.7 ml EF(Teich) 73.9 % EDV(cubed) 44.7 ml ESV(cubed) 8.7 ml EF(cubed) 80.4 % % IVS thick 19.9 % % LVPW thick 9.4 % LV mass(C)d 219.4 grams LV mass(C)dI 106.7 grams/m\S\2 LV mass(C)s 147.8 grams LV mass(C)sI 71.9 grams/m\S\2 SV(Teich) 38.9 ml SI(Teich) 18.9 ml/m\S\2 SV(cubed) 36.0 ml SI(cubed) 17.5 ml/m\S\2 LVAd ap4 19.2 cm\S\2 LVLd ap4 7.9 cm EDV(MOD-sp4) 38.9 ml EDV(sp4-el) 39.8 ml LVAs ap4 8.2 cm\S\2 LVLs ap4 6.4 cm ESV(MOD-sp4) 9.5 ml ESV(sp4-el) 9.1 ml EF(MOD-sp4) 75.6 % EF(sp4-el) 77.2 % LVAd ap2 24.7 cm\S\2 LVLd ap2 7.8 cm EDV(MOD-sp2) 66.7 ml EDV(sp2-el) 66.4 ml LVAs ap2 7.2 cm\S\2 LVLs ap2 6.3 cm ESV(MOD-sp2) 7.8 ml ESV(sp2-el) 7.0 ml EF(MOD-sp2) 88.4 % EF(sp2-el) 89.4 % LVLd %diff -0.94 % EDV(MOD-bp) 51.2 ml LVLs %diff -1.78 % ESV(MOD-bp) 8.7 ml EF(MOD-bp) 83.0 % SV(MOD-sp4) 29.4 ml SI(MOD-sp4) 14.3 ml/m\S\2 SV(MOD-sp2) 58.9 ml SI(MOD-sp2) 28.7 ml/m\S\2 SV(MOD-bp) 42.5 ml SI(MOD-bp) 20.7 ml/m\S\2 SV(sp4-el) 30.7 ml SI(sp4-el) 14.9 ml/m\S\2 SV(sp2-el) 59.3 ml SI(sp2-el) 28.9 ml/m\S\2 Doppler Measurements and Calculations Ao V2 max 287.8 cm/sec Ao max PG 33.1 mmHg Ao max PG (full) 31.0 mmHg Ao V2 mean 183.6 cm/sec Ao mean PG 16.4 mmHg Ao mean PG (full) 15.2 mmHg Ao V2 VTI 49.7 cm LV V1 max PG 2.2 mmHg LV V1 mean PG 1.1 mmHg LV V1 max 73.9 cm/sec LV V1 mean 48.2 cm/sec LV V1 VTI 11.2 cm
--- NOTE | 2017-08-22 13:19 | History & Physical Bridge Note ---
H&P Re-Evaluation Bridge Note: I have examined the patient, reviewed the History & Physical and in the interval since the performance of the History & Physical I have noted the following changes of clinical significance: No changes noted
[2017-08-22] MEDS ORDERED: LIDOCAINE HCL 2% 2 ML VIAL (20MG/ML) ONE (13:44)
[2017-08-22] MEDS ORDERED: PHENYLEPHRINE 100MCG/ML 5ML SYR ONE (13:44)
[2017-08-22] MEDS ORDERED: MIDAZOLAM HCL 1 MG/ML 2ML VIAL ONE (13:44)
[2017-08-22] MEDS ORDERED: EpHEDrine SULFATE 50MG/5ML SYR ONE (13:44)
[2017-08-22] MEDS ORDERED: PROPOFOL IV EMULSION 10 MG/ML 20 ML VIAL IV ONE (13:44)
[2017-08-22] MEDS ORDERED: FENTANYL CITRATE INJ 50 MCG/1 ML 2 ML VIAL ONE ×2 (13:44→17:18)
[2017-08-22] MEDS: SODIUM CHLORIDE 0.9% 1000ML 1,000 ML IV SCH ×2 (14:00→20:59)
[2017-08-22] MEDS ORDERED: PHENYLEPHRINE HCL INJ 10 MG/ML VIAL ONE (14:17)
[2017-08-22] MEDS ORDERED: BACITRACIN 50000 UNIT VIAL ONE (15:44)
[2017-08-22] MEDS ORDERED: BUPIVACAINE/EPINEPHRINE 0.5% MPF 1:200,000 30 ML VIAL ONE (15:44)
[2017-08-22] MEDS ORDERED: FENTANYL CITRATE INJ 50 MCG/1 ML 2 ML VIAL IV PRN (15:45)
[2017-08-22] MEDS ORDERED: MoRPHine SULFATE 10 MG/ML CARP/VIAL IV PRN (15:45)
[2017-08-22] MEDS ORDERED: ATROPINE SULFATE 0.1 MG/ML 5ML SYR IV PRN (15:45)
[2017-08-22] MEDS ORDERED: ONDANSETRON INJ 2 MG/ML 2 ML VIAL IV PRN ×2 (15:45→18:45)
[2017-08-22] MEDS ORDERED: EpHEDrine SULFATE INJ 50 MG/ML AMP IV PRN (15:45)
--- NOTE | 2017-08-22 18:39 | [facility] Post Operative Brief Note ---
Immediate Operative Summary Operative Date Aug 22, 2017. Pre-Operative Diagnosis Left hip comminuted intertrochanteric fracture Post-Operative Diagnosis Left hip comminuted intertrochanteric fracture Procedure(s) Performed Left long trochanteric nail Surgeon Dr. Webb Instruction[employer] Services Librarian Surgeon(s) Louis Linda PA-C Estimated Blood Loss 100cc Findings Consistent with Post-Op Diagnosis Fluids (cc crystalloids) 1100 cc Specimens None Drains None Anesthesia Type General Complication(s) none Disposition Accompanied Pt To Recover: yes Disposition: Recovery Room / PACU
[2017-08-22] MEDS ORDERED: MAGNESIUM HYDROXIDE SUSP 30 ML UDC PO PRN (18:45)
[2017-08-22] MEDS ORDERED: BISACODYL 10 MG SUPP PR PRN (18:45)
--- NOTE | 2017-08-22 18:46 | DIAGNOSTIC IMAGING REPORT ---
L HIP OR FILMS CLINICAL HISTORY: LEFT TROCHNAILhip fracture COMPARISON STUDY: 08/21/2017 FLUOROSCOPY TIME: 2 minutes 22 seconds. FINDINGS: Satisfactory left hip . Alignment is generally anatomic. Avulsion lesser trochanters again noted. IMPRESSION: Satisfactory position post left hip nailing procedure The above report was generated using voice recognition software. It may contain grammatical, syntax or spelling errors. Electronically signed by: Stephen Woods M.D. 08/22/2017 6:45 PM Dictated Date/Time: 08/22/2017 6:44 PM
[2017-08-22] MEDS ORDERED: LABETALOL HCL IV 5 MG/ML 20ML IV ONE ×2 (18:57→19:16)
[2017-08-22] MEDS ORDERED: LABETALOL HCL IV 5 MG/ML 20ML IV PRN (19:15)
[2017-08-22] MEDS: METOPROLOL TARTRATE 1 MG/ML VIAL ONE (19:21)
[2017-08-22] MEDS ORDERED: METOPROLOL TARTRATE 1 MG/ML VIAL ONE (19:40)
[2017-08-22] MEDS ORDERED: WARFARIN SOD 7.5 MG TAB PO ONE (20:00)
--- NOTE | 2017-08-22 20:48 | Anesthesiology Progress Note ---
Anesthesia Post Op Note Date & Time Aug 22, 2017 at 20:48 Vital Signs Pain Intensity: 0 Vital Signs Past 12 Hours Date Time Temp Pulse Resp B/P (MAP) Pulse Ox O2 Delivery O2 Flow Rate FiO2 08/22/17 20:15 36.7 105 20 157/115 (129) 97 Nasal Cannula 2.0 08/22/17 19:56 127/102 08/22/17 19:55 160/119 08/22/17 19:52 100 17 08/22/17 19:52 108 17 93 08/22/17 19:48 145/130 08/22/17 19:47 113 17 202/111 94 08/22/17 19:47 113 17 08/22/17 19:42 101 17 08/22/17 19:42 116 17 95 08/22/17 19:42 112 137/111 08/22/17 19:41 137/111 08/22/17 19:37 114 15 08/22/17 19:37 115 15 97 08/22/17 19:36 120 15 148/114 96 08/22/17 19:36 113 15 08/22/17 19:31 102 16 08/22/17 19:31 107 16 169/102 95 08/22/17 19:30 162/116 08/22/17 19:26 105 16 08/22/17 19:26 106 16 178/92 94 08/22/17 19:25 37.6 90 17 178/92 95 Nasal Cannula 2 08/22/17 19:21 126 16 184/92 93 08/22/17 19:21 120 16 08/22/17 19:21 123 184/92 08/22/17 19:16 100 15 148/98 95 08/22/17 19:16 121 15 08/22/17 19:11 118 15 153/80 93 08/22/17 19:11 117 15 08/22/17 19:07 150/87 08/22/17 19:06 114 14 96 08/22/17 19:06 111 14 08/22/17 19:05 111 17 98 08/22/17 19:05 118 17 08/22/17 19:02 161/126 08/22/17 19:00 122 14 08/22/17 19:00 118 14 100 08/22/17 18:57 165/96 08/22/17 18:55 108 17 100 08/22/17 18:55 117 17 08/22/17 18:51 192/97 08/22/17 18:50 113 14 100 08/22/17 18:50 108 14 08/22/17 18:48 160/120 08/22/17 18:45 36.2 116 14 192/97 (122) 100 10 08/22/17 18:45 107 14 08/22/17 18:45 106 14 100 08/22/17 15:11 36.6 100 20 136/92 (107) 96 Room Air 08/22/17 12:13 36.6 101 19 138/76 (96) 93 Room Air 08/22/17 12:00 Room Air Notes Mental Status: alert / awake / arousable, participated in evaluation Pt Amnestic to Procedure: Yes Nausea / Vomiting: adequately controlled Pain: adequately controlled Airway Patency, RR, SpO2: stable & adequate BP & HR: stable & adequate Hydration State: stable & adequate Anesthetic Complications: no major complications apparent
[2017-08-22] MEDS: SIMVASTATIN 20 MG TAB PO SCH (20:57)
[2017-08-22] MEDS: DOCUSATE SODIUM/SENNA 50/8.6MG TAB PO SCH (20:57)
[2017-08-22] MEDS: BIMATOPROST 0.01% OP SOLN 2.5 ML BTL OPB SCH (20:58)
[2017-08-22] MEDS: HydrALAZINE HCL 20 MG/ML VIAL IV. PRN (22:35)
--- NOTE | 2017-08-22 22:36 | OPERATIVE REPORT ---
DATE OF OPERATION: 08/22/2017 SURGEON: Claudio Webb MD TDP DISPLAYS ANALYST: LIZETH Bailey PREOPERATIVE DIAGNOSIS: Left comminuted intertrochanteric femur fracture. POSTOPERATIVE DIAGNOSIS: Left comminuted intertrochanteric femur fracture. PROCEDURE PERFORMED: Left long cephalomedullary nailing of left comminuted intertrochanteric hip fracture. COMPLICATIONS: None. ESTIMATED BLOOD LOSS: 100 mL FLUID REPLACEMENT: 1100 mL crystalloid fluid replacement. ANESTHESIA: General. SPECIMENS: None. OPERATIVE INDICATIONS: The patient is an 87-year-old obese female who sustained a fall yesterday. She had no preexisting hip pain. She had acute onset of pain and was unable to ambulate. She was brought to Emergency Room, where x-rays revealed an intertrochanteric hip fracture. She is admitted to the hospitalist service and medically optimized. She is on Coumadin for aortic valve replacement as well as chronic AFib and has had to be reversed with vitamin K. She was optimized and indicated for surgical stabilization/treatment. OPERATIVE IMPLANTS: Operative implants consisted of: 1. A Synthes left 11 x 360 mm long trochanteric nail. 2. A 105 mm helical blade. 3. A 5 x 44 mm distal interlocking screw. OPERATIVE PROCEDURE: The patient taken to the operating room, identified and placed in the operating table in a supine position. General anesthetic was implemented due to her aortic valve disease as well as her history of Coumadin use. A general anesthetic was implemented. IV antibiotics were provided. The patient was then placed on the fracture table. The left leg was placed in boot traction. Right leg was placed in a well leg pineda. I then applied some longitudinal traction of the femur and internally rotated the foot so the kneecap pointed to the ceiling. I brought in x-ray. We manipulated this slightly and may reduce this as well as possible. She was missing a fairly significant section of bone in the intertrochanteric region. The left hip and leg were then scrubbed with Hibiclens and prepped with ChloraPrep and draped in the usual sterile fashion. A curvilinear incision was made just proximal to tip of the trochanter and extended proximally. We had to make a fairly large incision due to the very large soft tissue envelope. Sharp dissection was carried through the subcutaneous tissues down to the level of the and gluteal fascia. Incision was made in the gluteal fascia. A guidewire was placed just lateral to the tip of the trochanter in line with the femoral canal and the femoral neck on both the AP and lateral planes. I then over reamed this with a 17 mm reamer. This guidewire was removed and a ball-tipped guidewire was placed. We measured for nail length and a 360-mm nail was selected. I then reamed with a 12 reamer followed by 12.5 reamer. A 316 x 11 mm left long trochanteric nail was then placed over the guidewire and the guidewire was removed. I tapped this into position. The lateral aiming arm was attached. A stab incision was made. The lateral aiming arm was advanced to the lateral aspect of the femur. The guidewire was placed in the central area of the femoral head and neck in both the AP and lateral planes. This was measured. A 105 mm helical blade was selected. The cortical drill was used to breach the cortex. The triple reamer was set at 105 and we overreamed the guidewire. I then placed the helical blade. We then tightened the set screw. There was some distraction at the fracture site, so we took off traction and I used the compression device to compress the femoral neck. The lateral aiming arm was then removed and some final x-rays were obtained. Attention was then drawn toward distal interlocking. Using the perfect [place] technique, a distal interlocking screw was placed. I made a stab incision. The radiolucent drill was used to create the hole and a 5 x 44 mm distal interlocking screw was placed. Some final x-rays were obtained. Attention was then drawn toward closing. All wounds were irrigated with copious amounts of normal saline. I did inject locally with 30 mL of 0.5% Marcaine with epinephrine. The gluteal fascia was then closed with #2 Vicryl suture in a running fashion. The subcutaneous tissues of the proximal wound were then closed in 2 layers with #2 Vicryl sutures deep and then a 2-0 Vicryl and the subcutaneous tissues. The other 2 incisions were irrigated and the subcutaneous tissues were closed with 2-0 Vicryl suture in a buried interrupted fashion. Skin of all the incisions was closed with skin josse. Leg was then cleaned and dried and a sterile dressing of Xeroform, 4 x 4's, sterile ABD pad, and foam tape was applied. The patient was then taken off the fracture table. She was brought out of general anesthesia and transferred to the recovery room in stable condition. The patient tolerated the procedure with no complications. All needle and sponge counts were correct at the end of the operation. I attest to the content of the Intraoperative Record and any orders documented therein. Any exception s are noted below.
[2017-08-23] VITALS (11 sets, daily range): BP systolic 124–153; BP diastolic 64–92; PULSE 92–118; TEMP 36.8–37.2; O2SAT 90–98
[2017-08-23] MEDS: CEFAZOLIN IV 2,000 MG in SYRINGE 0 ML IV SCH ×2 (00:11→08:12)
[2017-08-23 06:02] LABS: HEMATOCRIT 29.3 % (37-47); HEMOGLOBIN 9.5 g/dL (12.0-16.0); MEAN CELL VOLUME 89.6 fL (80-100); MEAN CORPUSCULAR HEMOGLOBIN 29.1 pg (25-34); MEAN CORPUSCULAR HGB CONC 32.4 g/dl (32-36); MEAN PLATELET VOLUME 9.6 fL (7.4-10.4); PLATELET COUNT 189 K/uL (130-400); RED CELL DISTRIBUTION WIDTH CV 14.7 % (11.5-14.5); RED CELL DISTRIBUTION WIDTH SD 48.3 fL (36.4-46.3); WHITE BLOOD COUNT 13.83 K/uL (4.8-10.8)
[2017-08-23 06:23] LABS: INR 1.2 (0.9-1.1)
[2017-08-23 06:28] LABS: CALCIUM 8.1 mg/dl (8.5-10.1); CREATININE 0.97 mg/dl (0.60-1.20); POTASSIUM 3.9 mmol/L (3.5-5.1)
[2017-08-23] MEDS: HYDROCODONE/ACETAMIN 5/325MG TAB PO PRN (08:11)
[2017-08-23] MEDS: METOPROLOL TARTRATE 100 MG TAB PO SCH ×2 (08:13→21:31)
--- NOTE | 2017-08-23 08:15 | Anesthesiology Progress Note ---
Anesthesia Post Op Note Date & Time Aug 23, 2017 at 08:15 Vital Signs Pain Intensity: 5.0 Vital Signs Past 12 Hours Date Time Temp Pulse Resp B/P (MAP) Pulse Ox O2 Delivery O2 Flow Rate FiO2 08/23/17 04:00 Nasal Cannula 2.0 08/23/17 03:42 36.9 118 18 128/88 (101) 98 Nasal Cannula 2.0 08/23/17 00:49 124/64 (84) 08/23/17 00:00 Nasal Cannula 2.0 08/22/17 23:43 36.9 108 18 98/65 (76) 97 Nasal Cannula 2.0 08/22/17 22:10 117 185/103 (130) Notes Mental Status: alert / awake / arousable, participated in evaluation Pt Amnestic to Procedure: Yes Nausea / Vomiting: adequately controlled Pain: adequately controlled Airway Patency, RR, SpO2: stable & adequate BP & HR: stable & adequate Hydration State: stable & adequate Anesthetic Complications: no major complications apparent
[2017-08-23] MEDS: LISINOPRIL 10 MG TAB PO SCH (09:00)
--- NOTE | 2017-08-23 14:33 | Progress Note ---
Subjective Date of Service: Aug 23, 2017. Subjective Pt evaluation today including: conversation w/ patient, conversation w/ family , physical exam, chart review, lab review, review of studies, conversation w/ custom decorating consultant, review of inpatient medication list Doing good, out of bed to the chair, pain well controlled, actually not too much pain per patient, eating voiding good, Problem List Medical Problems: (1) Anterior epistaxis Status: Acute (2) Fall Status: Acute (3) Intertrochanteric fracture of left hip Status: Acute (4) Supratherapeutic INR Status: Acute Review of Systems Constitutional: No fever, No chills, No sweats, No weight loss, No weakness, No fatigue, No problem reported Eyes: No worsening of vision, No eye pain, No redness, No discharge, No diplopia ENT: No hearing loss, No unusual epistaxis, No nasal symptoms, No sore throat, No tinnitus, No dental problems, No trouble swallowing Respiratory: No cough, No sputum, No wheezing, No shortness of breath, No dyspnea on exertion, No dyspnea at rest, No hemoptysis Cardiac: No chest pain, No orthopnea, No PND, No edema, No claudication, No palpitations Abdomen: No pain, No nausea, No vomiting, No diarrhea, No constipation Musculoskeletal: + joint pain, No muscle pain, No swelling, No calf pain Female : No dysuria, No urinary frequency, No hematuria, No incontinence, No abnormal vaginal bleeding, No vaginal discharge Neurologic: No memory loss, No paralysis, No weakness, No numbness/tingling, No vertigo, No balance problems Psychiatric: No depression symptoms, No anhedonism, No anxiety, No insomnia, No substance abuse Heme: No abnormal bleeding/bruising, No clotting problems, No swollen lymph nodes, No night sweats Endo: No fatigue, No excessive thirst, No excessive urination Skin: No rash, No itch, No new/changing skin lesions, No color change, No bleeding Objective Vital Signs Date Time Temp Pulse Resp B/P (MAP) Pulse Ox O2 Delivery O2 Flow Rate FiO2 08/23/17 13:20 36.8 107 20 98 2.0 08/23/17 12:00 98 Nasal Cannula 2.0 08/23/17 11:56 36.8 107 20 142/73 (96) 95 Room Air 4/24/18 08:00 98 Nasal Cannula 2.0 08/23/17 07:18 36.9 111 20 146/92 (110) 98 Nasal Cannula 2.0 08/23/17 04:00 Nasal Cannula 2.0 08/23/17 03:42 36.9 118 18 128/88 (101) 98 Nasal Cannula 2.0 08/23/17 00:49 124/64 (84) 08/23/17 00:00 Nasal Cannula 2.0 08/22/17 23:43 36.9 108 18 98/65 (76) 97 Nasal Cannula 2.0 08/22/17 22:10 117 185/103 (130) 08/22/17 20:15 36.7 105 20 157/115 (129) 97 Nasal Cannula 2.0 08/22/17 20:00 Nasal Cannula 2.0 08/22/17 19:56 127/102 08/22/17 19:55 160/119 08/22/17 19:52 100 17 08/22/17 19:52 108 17 93 08/22/17 19:48 145/130 08/22/17 19:47 113 17 202/111 94 08/22/17 19:47 113 17 08/22/17 19:42 101 17 08/22/17 19:42 116 17 95 08/22/17 19:42 112 137/111 08/22/17 19:41 137/111 08/22/17 19:37 114 15 08/22/17 19:37 115 15 97 08/22/17 19:36 120 15 148/114 96 08/22/17 19:36 113 15 08/22/17 19:31 102 16 08/22/17 19:31 107 16 169/102 95 08/22/17 19:30 162/116 08/22/17 19:26 105 16 08/22/17 19:26 106 16 178/92 94 08/22/17 19:25 37.6 90 17 178/92 95 Nasal Cannula 2 08/22/17 19:21 126 16 184/92 93 08/22/17 19:21 120 16 08/22/17 19:21 123 184/92 08/22/17 19:16 100 15 148/98 95 08/22/17 19:16 121 15 08/22/17 19:11 118 15 153/80 93 08/22/17 19:11 117 15 08/22/17 19:07 150/87 08/22/17 19:06 114 14 96 08/22/17 19:06 111 14 08/22/17 19:05 111 17 98 08/22/17 19:05 118 17 08/22/17 19:02 161/126 08/22/17 19:00 122 14 08/22/17 19:00 118 14 100 08/22/17 18:57 165/96 08/22/17 18:55 108 17 100 08/22/17 18:55 117 17 08/22/17 18:51 192/97 08/22/17 18:50 113 14 100 08/22/17 18:50 108 14 08/22/17 18:48 160/120 08/22/17 18:45 36.2 116 14 192/97 (122) 100 10 08/22/17 18:45 107 14 08/22/17 18:45 106 14 100 08/22/17 15:11 36.6 100 20 136/92 (107) 96 Room Air Physical Exam General Appearance: WD/WN, no apparent distress, + pertinent finding (Obesity but pleasant) Eyes: normal inspection, PERRL, EOMI, sclerae normal ENT: normal ENT inspection, hearing grossly normal, pharynx normal Neck: supple, no adenopathy, thyroid normal, no JVD, no carotid bruits, trachea midline Respiratory/Chest: chest non-tender, normal breath sounds, no respiratory distress, no accessory muscle use, + decreased breath sounds Cardiovascular: regular rate, rhythm, no edema, no gallop, no JVD, no murmur Abdomen: normal bowel sounds, non tender, soft, no organomegaly, no pulsatile mass Extremities: normal range of motion, non-tender, normal inspection, no pedal edema, no calf tenderness, normal capillary refill, pelvis stable Neurologic/Psychiatric: 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, no motor/sensory deficits, alert, normal mood/affect, oriented x 3 Skin: normal color, warm/dry, no rash, + pertinent finding (Left hip incision looks good) Lymphatic: no adenopathy Laboratory Results Last 24 Hours Test 08/23/17 05:37 White Blood Count 13.83 K/uL Red Blood Count 3.27 M/uL Hemoglobin 9.5 g/dL Hematocrit 29.3 % Mean Corpuscular Volume 89.6 fL Mean Corpuscular Hemoglobin 29.1 pg Mean Corpuscular Hemoglobin Concent 32.4 g/dl RDW Standard Deviation 48.3 fL RDW Coefficient of Variation 14.7 % Platelet Count 189 K/uL Mean Platelet Volume 9.6 fL Prothrombin Time 12.2 SECONDS Prothromb Time International Ratio 1.2 Sodium Level 137 mmol/L Potassium Level 3.9 mmol/L Chloride Level 104 mmol/L Carbon Dioxide Level 27 mmol/L Anion Gap 6.0 mmol/L Blood Urea Nitrogen 19 mg/dl Creatinine 0.97 mg/dl Est Creatinine Clear Calc Drug Dose 47.1 ml/min Estimated GFR () 60.9 Estimated GFR (Non- 52.5 BUN/Creatinine Ratio 19.2 Random Glucose 156 mg/dl Calcium Level 8.1 mg/dl Assessment and Plan 87 y/o female with a history of CAD, bioprosthetic aortic valve, a-fib, HTN, HLD , and glaucoma admitted on August 21, 2017 with a left intertrochanteric hip fracture following a mechanical fall. L hip fracture, S/P Left long cephalomedullary nailing of left comminuted intertrochanteric hip fracture. postop day 1, stable CAD, HTN, HLD--stable Permanent a-fib--stable Continue telemetry due to a-fib, procedure today Vitamin D deficient, vitamin D low at 16.5, start supplementation Continue Lopressor 150 mg PO BID, Zocor 20 mg PO qd Continue lisinopril to hold History of A. fib on Coumadin prior to admission, his current to resume warfarin postoperatively, continue to monitor, Patient got warfarin 7.5 mg p.o. last night, will continue 5 mg p.o. daily check PT/INR levels No instructions will be per surgeon, possible able to discharge in day 1 or 2 to rehab DO NOT RESUSCITATE Continue PT OT planning to rehab Continued [facility] stay due to: home environment unsafe for pt Discharge planning: rehab hospital
--- NOTE | 2017-08-23 16:07 | PROGRESS NOTE ---
DATE: 08/23/2017 SUBJECTIVE: An 87-year-old white female postop day 1 from IM nailing of left intertrochanteric fracture. She is doing pretty well. Denies any significant pain while lying in bed. No chest pain or shortness of breath. Not feeling dizzy or lightheaded. OBJECTIVE: VITAL SIGNS: Temperature is 37.2. Vital signs stable. PHYSICAL EXAMINATION: EXTREMITIES: Physical examination of the left leg reveals the leg to be well aligned. Her dressing is clean, dry and intact. She can dorsiflex and plantarflex her foot appropriately. NEUROLOGIC: She is neurologically intact. LABORATORY DATA: Hemoglobin 9.5. Hematocrit 29.3. Electrolytes are stable. Her INR is 1.2. ASSESSMENT: An 87-year-old white female postop day 1 from intramedullary nailing of left intertrochanteric fracture, doing reasonably well. Pain seems to be controlled. She is neurologically intact. PLAN: 1. DVT prophylaxis including thigh-high TEDs, SCDs, and resume her Coumadin with a goal keeping the INR between 2 and 3. This is currently managed by the medicine service and she is on 5 mg of Coumadin daily. 2. PT/OT. She can weightbear as tolerated on the left lower extremity. 3. Medical management as per the medicine service. 4. Disposition: She is hoping to go to [facility] upon discharge. She is orthopedically stable and acceptable for discharge any time. I need to see her back 2 weeks post surgery date. Any orthopedic questions can be directed to me at [phone].
[2017-08-23] MEDS: WARFARIN SOD 5 MG TAB PO SCH (16:51)
[2017-08-23] MEDS: ACETAMINOPHEN 325 MG TAB PO PRN ×2 (16:53→21:31)
--- NOTE | 2017-08-23 20:18 | Discharge Instructions ---
Discharge Instructions Date of Service Aug 23, 2017. Admission Reason for Admission: L Hip Fx And Accelerated Htn Discharge Discharge Diagnosis / Problem: Left Hip IM Nailing for Fracture Discharge Goals Goal(s): Decrease discomfort, Improve function, Increase independence, Improve disease control, Therapeutic intervention Activity Recommendations Activity Level: Assistance Required Therapies: Physical Therapy, Occupational Therapy Weightbearing Status: Left weightbearing . Additional Information Patient informed of condition: Yes Advance Directives: Yes DNR: Yes Level of Care: Skilled Communicable Disease: No Prognosis: Improving Instructions / Follow-Up Instructions / Follow-Up MEDICATIONS: * Resume previous medications unless instructed otherwise by your surgeon. * Always take pain medication on a full stomach or with food to avoid upset stomach. * Do not drink alcohol or drive while taking narcotics. * Ibuprofen or Tylenol may be taken if narcotic not needed. SPECIAL CARE INSTRUCTIONS: Call physician if chills or temperature rises above 102 degrees or pain unrelieved by prescribed pain medications. Office [phone] Current Hospital Diet Patient's current hospital diet: AHA Diet (Heart Healthy) Discharge Diet Recommended Diet: AHA Diet (Heart Healthy) Procedures Procedures Performed: Left long trochanteric nail Pending Studies Studies pending at discharge: no Medical Emergencies . Who to Call and When: Medical Emergencies: If at any time you feel your situation is an emergency, please call 911 immediately. . Non-Emergent Contact Non-Emergency issues call your: Surgeon . . "Provider Documentation" section prepared by Claudio Webb. . Core Measure Problem Core Measures: None
[2017-08-23] MEDS: BIMATOPROST 0.01% OP SOLN 2.5 ML BTL OPB SCH (21:00)
[2017-08-23] MEDS: DOCUSATE SODIUM/SENNA 50/8.6MG TAB PO SCH (21:30)
[2017-08-23] MEDS: SIMVASTATIN 20 MG TAB PO SCH (21:30)
[2017-08-24] MEDS: ACETAMINOPHEN 325 MG TAB PO PRN ×4 (02:30→17:19)
[2017-08-24] MEDS: POLYETHYLENE (MIRALAX) 17 GM PACK PO SCH ×3 (06:08→17:20)
[2017-08-24 07:34] LABS: HEMATOCRIT 27.6 % (37-47); HEMOGLOBIN 9.1 g/dL (12.0-16.0); MEAN CELL VOLUME 89.6 fL (80-100); MEAN CORPUSCULAR HEMOGLOBIN 29.5 pg (25-34); PLATELET COUNT 202 K/uL (130-400); RED CELL DISTRIBUTION WIDTH CV 14.8 % (11.5-14.5); RED CELL DISTRIBUTION WIDTH SD 48.1 fL (36.4-46.3); WHITE BLOOD COUNT 17.09 K/uL (4.8-10.8)
[2017-08-24 07:42] LABS: INR 1.6 (0.9-1.1)
[2017-08-24 08:02] LABS: CALCIUM 8.7 mg/dl (8.5-10.1); CREATININE 1.11 mg/dl (0.60-1.20); POTASSIUM 3.8 mmol/L (3.5-5.1)
[2017-08-24 08:12] VITALS: BP 150/90; PULSE 79; TEMP 37.2; O2SAT 96
[2017-08-24] MEDS: METOPROLOL TARTRATE 100 MG TAB PO SCH ×2 (09:11→21:23)
[2017-08-24] MEDS: LISINOPRIL 10 MG TAB PO SCH (09:11)
[2017-08-24] MEDS: CALCIUM 600MG + VIT D 400 IU TAB PO SCH ×2 (10:15→21:22)
--- NOTE | 2017-08-24 12:32 | PROGRESS NOTE ---
DATE: 08/24/2017 SUBJECTIVE: This is an 87-year-old white female postop day 2 from IM nailing of a left intertrochanteric fracture. She is doing pretty well. Pain is controlled. No new complaints. She is hoping to go to [facility]. OBJECTIVE: VITAL SIGNS: Temperature 37.2. Vital signs stable. PHYSICAL EXAMINATION: GENERAL: Reveals a pleasant elderly female. She is sitting up in her bedside chair and looks reasonably comfortable. EXTREMITIES: Examination of left hip and leg reveals a dressing is being in place. She does have some serosanguineous drainage from all of her incision sites. Her leg length is appropriate and straight and equal. She can dorsiflex and plantarflex her foot appropriately. NEUROLOGIC: She is neurologically intact. LABORATORY DATA: Hemoglobin 9.1. Hematocrit 27.6. INR 1.6. Electrolytes are stable. ASSESSMENT: [id number][age][id number]-nfci-old white female with multiple comorbidities postoperative day 2 from intramedullary nailing of left intertrochanteric fracture. Very large soft tissue envelope. She is doing well. Pain is controlled. She is neurologically intact. PLAN: 1. DVT prophylaxis including thigh-high TEDs, SCDs, and back on her Coumadin. 2. PT/OT. She can fully weightbear in the left leg as tolerated. 3. Medical management as per the medicine service. 4. Disposition: She is orthopedically acceptable for discharge any time. I need to see her back 2 weeks out from her surgery date. Any orthopedic questions can be directed to me at [phone].
[2017-08-24 14:54] VITALS: BP 146/74; PULSE 89; TEMP 36.7; O2SAT 94
[2017-08-24] MEDS: WARFARIN SOD 5 MG TAB PO SCH (15:50)
--- NOTE | 2017-08-24 16:39 | Progress Note ---
Subjective Date of Service: Aug 24, 2017. Subjective Pt evaluation today including: conversation w/ patient, conversation w/ family , physical exam, chart review, lab review, review of studies, conversation w/ supervisor home energy consultant, review of inpatient medication list Sitting up in chair, pleasant, conversational, pain well controlled Problem List Medical Problems: (1) Anterior epistaxis Status: Acute (2) Fall Status: Acute (3) Intertrochanteric fracture of left hip Status: Acute (4) Supratherapeutic INR Status: Acute Review of Systems Constitutional: No fever, No chills, No sweats, No weight loss, No weakness, No fatigue, No problem reported Eyes: No worsening of vision, No eye pain, No redness, No discharge, No diplopia ENT: No hearing loss, No unusual epistaxis, No nasal symptoms, No sore throat, No tinnitus, No dental problems, No trouble swallowing Respiratory: No cough, No sputum, No wheezing, No shortness of breath, No dyspnea on exertion, No dyspnea at rest, No hemoptysis Cardiac: No chest pain, No orthopnea, No PND, No edema, No claudication, No palpitations Abdomen: No pain, No nausea, No vomiting, No diarrhea, No constipation Musculoskeletal: No joint pain, No muscle pain, No swelling, No calf pain Female : No dysuria, No urinary frequency, No hematuria, No incontinence, No abnormal vaginal bleeding, No vaginal discharge Neurologic: No memory loss, No paralysis, No weakness, No numbness/tingling, No vertigo, No balance problems Psychiatric: No depression symptoms, No anhedonism, No anxiety, No insomnia, No substance abuse Heme: No abnormal bleeding/bruising, No clotting problems, No swollen lymph nodes, No night sweats Endo: No fatigue, No excessive thirst, No excessive urination Skin: No rash, No itch, No new/changing skin lesions, No color change, No bleeding Objective Vital Signs Date Time Temp Pulse Resp B/P (MAP) Pulse Ox O2 Delivery O2 Flow Rate FiO2 08/24/17 14:54 36.7 89 16 146/74 (98) 94 Room Air 08/24/17 08:12 37.2 79 17 150/90 (110) 96 Room Air 08/24/17 07:50 Room Air 08/24/17 00:45 Room Air 08/23/17 23:10 36.8 92 20 149/84 (105) 96 Room Air 08/23/17 21:29 104 153/83 (106) 08/23/17 17:30 Room Air Physical Exam General Appearance: WD/WN, no apparent distress, + obese Eyes: normal inspection, PERRL, EOMI, sclerae normal ENT: normal ENT inspection, hearing grossly normal, pharynx normal Neck: supple, no adenopathy, thyroid normal, no JVD, no carotid bruits, trachea midline Respiratory/Chest: chest non-tender, lungs clear, normal breath sounds, no respiratory distress, no accessory muscle use Cardiovascular: regular rate, rhythm, no edema, no gallop, no JVD, no murmur Abdomen: normal bowel sounds, non tender, soft, no organomegaly, no pulsatile mass Extremities: normal range of motion, non-tender, normal inspection, no pedal edema, no calf tenderness, normal capillary refill, pelvis stable, + pertinent finding (Left lateral hip incision looks good) Neurologic/Psychiatric: 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, no motor/sensory deficits, alert, normal mood/affect, oriented x 3 Skin: normal color, warm/dry, no rash Lymphatic: no adenopathy Laboratory Results Last 24 Hours Test 08/24/17 07:15 White Blood Count 17.09 K/uL Red Blood Count 3.08 M/uL Hemoglobin 9.1 g/dL Hematocrit 27.6 % Mean Corpuscular Volume 89.6 fL Mean Corpuscular Hemoglobin 29.5 pg Mean Corpuscular Hemoglobin Concent 33.0 g/dl RDW Standard Deviation 48.1 fL RDW Coefficient of Variation 14.8 % Platelet Count 202 K/uL Mean Platelet Volume 9.0 fL Prothrombin Time 17.0 SECONDS Prothromb Time International Ratio 1.6 Sodium Level 136 mmol/L Potassium Level 3.8 mmol/L Chloride Level 103 mmol/L Carbon Dioxide Level 26 mmol/L Anion Gap 7.0 mmol/L Blood Urea Nitrogen 21 mg/dl Creatinine 1.11 mg/dl Est Creatinine Clear Calc Drug Dose 41.2 ml/min Estimated GFR () 51.7 Estimated GFR (Non- 44.6 BUN/Creatinine Ratio 18.6 Random Glucose 171 mg/dl Calcium Level 8.7 mg/dl Assessment and Plan 87 y/o female with a history of CAD, bioprosthetic aortic valve, a-fib, HTN, HLD , and glaucoma admitted on August 21, 2017 with a left intertrochanteric hip fracture following a mechanical fall. L hip fracture, S/P Left long cephalomedullary nailing of left comminuted intertrochanteric hip fracture. postop day 2, stable, Per Dr. Webb, patient need to see her back in Dr. Webb's office in 2 weeks out from her surgery date. Any orthopedic questions can be directed to me at [phone]. CAD, HTN, HLD--stable Permanent a-fib--stable Vitamin D deficient, vitamin D low at 16.5, start supplementation Possible diastolic CHF, no obvious sign of decompensation, BnP elevated, 2400, Call results in below; * The left ventricular cavity is small. * There is moderate concentric left ventricular hypertrophy. * The left ventricle is hyperdynamic. * The right ventricular systolic function is reduced as assessed by tricuspid annular plane systolic excursion (TAPSE) (TAPSE <1.6 cm). * The left atrium is mildly dilated. * Mild valvular aortic stenosis. * There is mild mitral regurgitation. Continue Lopressor 150 mg PO BID, Zocor 20 mg PO qd Continue lisinopril, use diuretic if needed History of A. fib on Coumadin prior to admission, his current to resume warfarin postoperatively, continue to monitor, Patient got warfarin 7.5 mg p.o. last night, will continue 5 mg p.o. daily check PT/INR levels No instructions will be per surgeon, possible able to discharge tomorrow to rehab DO NOT RESUSCITATE Continue PT OT planning to rehab Continued [facility] stay due to: home environment unsafe for pt Discharge planning: rehab hospital
[2017-08-24 21:00] VITALS: BP 163/85; PULSE 101
[2017-08-24] MEDS: BIMATOPROST 0.01% OP SOLN 2.5 ML BTL OPB SCH (21:00)
[2017-08-24] MEDS: DOCUSATE SODIUM/SENNA 50/8.6MG TAB PO SCH (21:22)
[2017-08-24] MEDS: SIMVASTATIN 20 MG TAB PO SCH (21:22)
[2017-08-24 22:50] VITALS: BP 160/86; PULSE 112; TEMP 37; O2SAT 96
[2017-08-25] MEDS ORDERED: NURSING DECISION MEDICATION ORDER SCH (01:00)
[2017-08-25] MEDS: ACETAMINOPHEN 325 MG TAB PO PRN (03:21)
[2017-08-25] MEDS: HYDROCODONE/ACETAMIN 5/325MG TAB PO PRN ×2 (07:19→13:34)
[2017-08-25 08:02] VITALS: BP 150/80; PULSE 98; TEMP 37.3; O2SAT 96
[2017-08-25] MEDS ORDERED: CALCTAB7 PO (08:35)
[2017-08-25] MEDS ORDERED: HYDR-5688 PO (08:35)
--- NOTE | 2017-08-25 08:41 | Discharge Instructions ---
Discharge Instructions Date of Service Aug 25, 2017. Admission Reason for Admission: L Hip Fx And Accelerated Htn Discharge Discharge Diagnosis / Problem: L hip fracture, S/P Left long cephalomedullary nailing of left comminuted i Discharge Goals Goal(s): Decrease discomfort, Improve function, Increase independence, Improve disease control, Improve nutritional status, Learn about illness, Diagnostic testing, Therapeutic intervention, Prevent Disease Progression, Specific goals Activity Recommendations Activity Level: Assistance Required Therapies: Physical Therapy, Occupational Therapy . Additional Information Patient informed of condition: Yes Advance Directives: Yes DNR: Yes Level of Care: Skilled Communicable Disease: No Prognosis: Improving Instructions / Follow-Up Instructions / Follow-Up you have L hip fracture, S/P Left long cephalomedullary nailing of left comminuted intertrochanteric hip fracture. you need to see her back in Dr. Webb's office in 2 weeks out from her surgery date. Any orthopedic questions can be directed to me at [phone]. you have Vitamin D deficient, vitamin D low at 16.5, start supplementation you ahve History of A. fib on Coumadin prior to admission, his current to resume warfarin postoperatively, continue to monitor, you need to check PT/INR in daily for and report to PCP to adjust dose, yesterday was 1.6 , today is 2.5, INR target level is 2 to 3 - you need to follow up with your primary care physician in 1 week, - take medication as instructed, never overdose or any misuse, or take with alcohol, because misuse of medicine may cause organ damage or , call your primary care physician if have questions of medicaitons. - call your primary care physician OR go to local emergency room if has any fever/chill, chest pain, shortness of breathing, nausea/vomiting/abdominal pain , facial droop/slurry speech/local weakness, or if has any questions. - fall precaution - diet as instructed - you need to follow up with your subspecialist Current Hospital Diet Patient's current hospital diet: AHA Diet (Heart Healthy) Discharge Diet Recommended Diet: AHA Diet (Heart Healthy) Procedures Procedures Performed: Left long trochanteric nail Pending Studies Studies pending at discharge: no Physician Orders On Transfer POLST Discussion: without POLST completion Medical Emergencies . Who to Call and When: Medical Emergencies: If at any time you feel your situation is an emergency, please call 911 immediately. . Non-Emergent Contact Non-Emergency issues call your: Primary Care Provider, Specialist (orthopedic) . . "Provider Documentation" section prepared by Nick Mattson. . Core Measure Problem Core Measures: None
[2017-08-25 08:43] LABS: HEMATOCRIT 26.3 % (37-47); HEMOGLOBIN 8.5 g/dL (12.0-16.0); MEAN CORPUSCULAR HEMOGLOBIN 29.4 pg (25-34); MEAN CORPUSCULAR HGB CONC 32.3 g/dl (32-36); MEAN PLATELET VOLUME 9.1 fL (7.4-10.4); NUCLEATED RED BLOOD CELL ABS 0.06 K/uL (0-0); PLATELET COUNT 230 K/uL (130-400); RED CELL DISTRIBUTION WIDTH SD 49.4 fL (36.4-46.3); WHITE BLOOD COUNT 12.37 K/uL (4.8-10.8)
[2017-08-25 08:51] LABS: INR 2.5 (0.9-1.1)
[2017-08-25] MEDS: CALCIUM 600MG + VIT D 400 IU TAB PO SCH (09:01)
[2017-08-25] MEDS: METOPROLOL TARTRATE 100 MG TAB PO SCH (09:02)
[2017-08-25] MEDS: LISINOPRIL 10 MG TAB PO SCH (09:02)
[2017-08-25 09:08] LABS: CALCIUM 8.6 mg/dl (8.5-10.1); CREATININE 0.92 mg/dl (0.60-1.20); POTASSIUM 3.7 mmol/L (3.5-5.1)
--- NOTE | 2017-08-25 11:39 | Clinical Documentation Query ---
CLINICAL DOCUMENTATION QUERY 87 yo female with femur fracture and s/p : left long cephalomedullary nailing has initial HGB of 12.8 trending down to 8.5. In your clinical opinion is this patient being managed for: (x ) possible Acute blood-loss anemia ( ) Not Agree ( ) Other explanation of clinical findings (Please Explain. If no explanation given, this would be considered a no response.) ( ) Unable to determine ( ) Need to Discuss (Please call CDS via extension or qliq. If no interaction occurs this is considered a no response.) The medical record reflects the following clinical findings, treatment, and risk factors. Clinical Indicators: As above Treatment: Serial CBCs Risk Factors: Age, s/p surgical intervention CLINICAL VALIDATION Previous query captured the clinical opinion Pathological Fracture. In order to maintain continuity of the medical record, please document this information throughout the record and discharge summary. Thank you! Thank You, Leona Onofre RN [phone] Please clarify and document your clinical opinion in the progress notes and discharge summary. Terms such as "probable", "suspected", "likely", "questionable", "possible", or "still to be ruled out" are acceptable. IF IN AGREEMENT, YOU MUST DOCUMENT ABOVE DIAGNOSTIC STATEMENT IN DAILY PROGRESS NOTES AND DISCHARGE SUMMARY. This document is not part of the patient's record. Thank You, Leona Onofre RN [phone]
--- NOTE | 2017-08-25 11:46 | PROGRESS NOTE ---
DATE: 08/25/2017 SUBJECTIVE: 87-year-old white female postop day 3 from IM nailing of a left intertrochanteric fracture. She is doing pretty well. Some pain but not anything unexpected. Therapy has gone reasonably well. She is waiting for placement at [facility]. OBJECTIVE: VITAL SIGNS: Temperature 37.3. Vital signs stable. PHYSICAL EXAMINATION: GENERAL: Reveals a pleasant, middle-aged female. Looks pretty comfortable. EXTREMITIES: Examination of left hip and leg reveals the incision to be in intact. She does have some serosanguineous drainage from all of her incision sites. Very large soft tissue envelope. She is neurologically intact. LABORATORY DATA: Hemoglobin is 8.5. Hematocrit 26.3. Electrolytes are stable. INR is 2.5. ASSESSMENT: 87-year-old white female postop day 3 from IM nailing of left intertroch/subtroch fracture. She is anemic but currently without symptoms. Her INR is now therapeutic. She is liable to have some drainage from her wounds based on her size for the next of 5-7 days. PLAN: 1. DVT prophylaxis including thigh-high TEDs, SCDs, and Coumadin. 2. PT/OT. She can weightbear as tolerated left leg. 3. Medical management as per the medicine service. 4. Disposition: She is orthopedically stable and acceptable for discharge any time. I need to see her back 2 weeks out from surgery date. Any orthopedic questions can be directed to me at [phone].
[2017-08-25 12:36] VITALS: BP 150/80; TEMP 37.3; O2SAT 96
[2017-08-25] MEDS: WARFARIN SOD 5 MG TAB PO SCH (12:47)
[2017-08-25 14:05] VITALS: PULSE 100; O2SAT 95
--- NOTE | 2017-08-25 17:41 | Discharge Summary ---
Discharge Summary Date of Service Aug 25, 2017. Discharge Summary Admission Date: Aug 21, 2017 at 16:24 Discharge Date: Aug 25, 2017 Discharge Disposition: Rehab Principal Diagnosis: L hip fracture, S/P Left long cephalomedullary nailing of left comminuted Problems/Secondary Diagnoses: Vitamin D deficient, History of A. fib on Coumadin Immunizations: Have You Had Influenza Vaccine: N/A History of Tetanus Vaccine?: Yes History of Pneumococcal: Yes History of Hepatitis B Vaccine: No Procedures: Left long cephalomedullary nailing of left comminuted intertrochanteric hip fracture. Consultations: Orthopedic surgeon Medication Reconciliation New Medications: Calcium Carbonate-Vitamin D W/ (Caltrate 600 Plus) 1 Tab Tab 1 TAB PO BID for 30 Days, #60 TAB Hydrocodone/Acetaminophen 5MG/325MG ([place] 5MG/325MG) Tab 1 TAB PO Q4 PRN for Pain for 3 Days, #10 TAB PRN PAIN Continued Medications: Bimatoprost (Lumigan) 0.01 % Chasity 1 DROPS OPB HS for 30 Days, #2.5 ML 3 Refills Furosemide (Lasix) 40 Mg Tab 40 MG PO DAILY PRN for edema, TAB Lisinopril (Zestril) 10 Mg Tab 10 MG PO DAILY, TAB Metoprolol Tartrate (Lopressor) (Lopressor) 100 Mg Tab 150 MG PO BID, TAB Potassium Chloride (Micro-K Ext Rel) 10 Meq Capcr 10 MEQ PO DAILY PRN for when taking lasix, CAP Simvastatin (Zocor) 20 Mg Tab 20 MG PO QPM, TAB Warfarin Sod (Coumadin *) 5 Mg Tab 5 MG PO 5XWK, 0 Refills takes on tuesday, tuesday, tuesday, and tuesday Warfarin Sod (Jantoven) 5 Mg Tab 2.5 MG PO 2XWK, TAB takes on . tuesday and sat Discharge Exam Sitting up in a chair, feeling good, pain well controlled, no complaint Review of Systems: Constitutional: No fever, No chills, No sweats, No weight loss, No weakness , No fatigue, No problem reported Eyes: No worsening of vision, No eye pain, No redness, No discharge, No diplopia, No problem reported ENT: No hearing loss, No unusual epistaxis, No nasal symptoms, No sore throat, No tinnitus, No dental problems, No trouble swallowing, No problem reported Respiratory: No cough, No sputum, No wheezing, No shortness of breath, No dyspnea on exertion, No dyspnea at rest, No hemoptysis, No problem reported Cardiovascular: No chest pain, No orthopnea, No PND, No edema, No claudication, No palpitations, No problem reported Abdomen: No pain, No nausea, No vomiting, No diarrhea, No constipation, No GI bleeding, No problem reported Genitourinary - Female: No dysuria, No urinary frequency, No urinary urgency , No urinary incontinence, No urinary retention, No hematuria, No dysmenorrhea, No menorrhagia, No metrorrhagia, No rash, No vaginal bleeding, No vaginal discharge, No vaginal itching, No vulvodynia, No , No problem reported Neurologic: No memory loss, No paralysis, No weakness, No numbness/tingling , No vertigo, No balance problems, No problem reported Psychiatric: No depression symptoms, No anhedonism, No anxiety, No insomnia , No substance abuse, No problem reported Hematologic / Lymphatic: No abnormal bleeding/bruising, No clotting problems , No swollen lymph nodes, No night sweats, No problem reported Integumentary: No rash, No itch, No new/changing skin lesions, No color change, No bleeding, No problem reported Physical Exam: General Appearance: WD/WN, no apparent distress Eyes: normal inspection, PERRL ENT: normal ENT inspection, hearing grossly normal Neck: supple, no adenopathy Respiratory/Chest: chest non-tender, lungs clear, normal breath sounds Cardiovascular: regular rate, rhythm, no edema, no gallop Abdomen / GI: normal bowel sounds, non tender, soft, no organomegaly, no pulsatile mass Extremities: normal inspection, no calf tenderness, normal capillary refill , + pertinent finding (Left hip incision looks good) Neurologic/Psychiatric: appeals nurse II-XII nml as tested, no motor/sensory deficits , alert, normal mood/affect Skin: normal color, warm/dry, no rash Hospital Course 87 y/o female with a history of CAD, bioprosthetic aortic valve, a-fib, HTN, HLD , and glaucoma admitted on August 21, 2017 with a left intertrochanteric hip fracture following a mechanical fall. L hip fracture, S/P Left long cephalomedullary nailing of left comminuted intertrochanteric hip fracture. postop day 3, stable, has been up to the chair , doing a physical therapist with therapist. Per Dr. Webb, patient need to see her back in Dr. Webb's office in 2 weeks out from her surgery date. Any orthopedic questions can be directed at [phone]. CAD, HTN, HLD--stable Permanent a-fib--stable Vitamin D deficient, vitamin D low at 16.5, start supplementation Possible diastolic CHF, no obvious sign of decompensation, BnP elevated, 2400, Call results in below; * The left ventricular cavity is small. * There is moderate concentric left ventricular hypertrophy. * The left ventricle is hyperdynamic. * The right ventricular systolic function is reduced as assessed by tricuspid annular plane systolic excursion (TAPSE) (TAPSE <1.6 cm). * The left atrium is mildly dilated. * Mild valvular aortic stenosis. * There is mild mitral regurgitation. Continue Lopressor 150 mg PO BID, Zocor 20 mg PO qd Continue lisinopril, use diuretic if needed History of A. fib on Coumadin prior to admission, his current to resume warfarin postoperatively, continue to monitor, Patient got warfarin 7.5 mg p.o. last night, will continue 5 mg p.o. daily check PT/INR levels, today's INR is 2.5, is ordered to check PT/INR daily and report to PCP adjust that dose Coumadin Discharge to rehab today possible Acute blood-loss anemia, his hemoglobin is 8.5, PCP please follow-up, transfusion if needed DO NOT RESUSCITATE Instructions / Follow-Up you have L hip fracture, S/P Left long cephalomedullary nailing of left comminuted intertrochanteric hip fracture. you need to see her back in Dr. Webb's office in 2 weeks out from her surgery date. Any orthopedic questions can be directed to me at [phone]. you have Vitamin D deficient, vitamin D low at 16.5, start supplementation you ahve History of A. fib on Coumadin prior to admission, his current to resume warfarin postoperatively, continue to monitor, you need to check PT/INR in daily for and report to PCP to adjust dose, yesterday was 1.6 , today is 2.5, INR target level is 2 to 3 - you need to follow up with your primary care physician in 1 week, - take medication as instructed, never overdose or any misuse, or take with alcohol, because misuse of medicine may cause organ damage or , call your primary care physician if have questions of medicaitons. - call your primary care physician OR go to local emergency room if has any fever/chill, chest pain, shortness of breathing, nausea/vomiting/abdominal pain , facial droop/slurry speech/local weakness, or if has any questions. - fall precaution - diet as instructed - you need to follow up with your subspecialist Total Time Spent: Greater than 30 minutes This includes examination of the patient, discharge planning, medication reconciliation, and communication with other providers. Discharge Instructions Please refer to the electronic Patient Visit Report (Discharge Instructions) for additional information. Additional Copies To Deb Rizzo M.D.; Claudio Webb M.D.
== END 2017-08-25 14:13 | DRG 481 ==
LOC: EDBD 13:37 → C.EDC 13:38 → C.2E 16:24 → ENRESERV 16:51 → C.MSW 08-23 13:54
PROVIDERS: ADMIT Hospitalist; ATTEND Hospitalist
PROC: 0QS706Z Reposition Left Upper Femur with Intramedullary Internal Fixation Device, Open Approach (ICD-10-PCS; principal; 2017-08-22 09:30)
DX: M84.452A Pathological fracture, left femur, initial encounter for fracture (principal); Z68.41 Body mass index [BMI] 40.0-44.9, adult; I50.32 Chronic diastolic (congestive) heart failure; D62 Acute posthemorrhagic anemia; E55.9 Vitamin D deficiency, unspecified; R79.1 Abnormal coagulation profile; I11.0 Hypertensive heart disease with heart failure; I48.2 Chronic atrial fibrillation; I25.10 Atherosclerotic heart disease of native coronary artery without angina pectoris; E78.5 Hyperlipidemia, unspecified; H40.9 Unspecified glaucoma; E66.9 Obesity, unspecified; Z79.899 Other long term (current) drug therapy; Z79.01 Long term (current) use of anticoagulants; Z66 Do not resuscitate; Z95.2 Presence of prosthetic heart valve; Z86.73 Personal history of transient ischemic attack (TIA), and cerebral infarction without residual deficits; Z83.3 Family history of diabetes mellitus; Z82.49 Family history of ischemic heart disease and other diseases of the circulatory system; V48.4XXA Person boarding or alighting a car injured in noncollision transport accident, initial encounter; Y99.8 Other external cause status

== ENCOUNTER → 2017-09-12 | Outpatient (CLI) | payer OTHER ==
[~2017-09-12] MED LIST changes: +CALCTAB7 PO; -CTP1 PO; +HYDR-5688 PO
[2017-09-12 16:58] LABS: BASO % 0.9 %; BASO ABS # 0.05 K/uL (0-0.2); EOS % 5.6 %; EOS ABS # 0.31 K/uL (0-0.5); HEMATOCRIT 33.3 % (37-47); HEMOGLOBIN 10.4 g/dL (12.0-16.0); LYMPH % 13.9 %; LYMPH ABS # 0.77 K/uL (1.2-3.4); MEAN CELL VOLUME 96.8 fL (80-100); MEAN CORPUSCULAR HEMOGLOBIN 30.2 pg (25-34); MEAN CORPUSCULAR HGB CONC 31.2 g/dl (32-36); MEAN PLATELET VOLUME 8.7 fL (7.4-10.4); MONO % 13.2 %; MONO ABS # 0.73 K/uL (0.11-0.59); NEUT % 66.4 %; NEUT ABS # 3.69 K/uL (1.4-6.5); PLATELET COUNT 305 K/uL (130-400); RED CELL DISTRIBUTION WIDTH CV 17.6 % (11.5-14.5); RED CELL DISTRIBUTION WIDTH SD 62.5 fL (36.4-46.3); WHITE BLOOD COUNT 5.55 K/uL (4.8-10.8)
== END | disposition home or self-care (01) ==
LOC: C.LABSPEC 12:16
PROVIDERS: ATTEND Internal Medicine
DX: D37.01 Neoplasm of uncertain behavior of lip (principal)